=== PATIENT | female | born 1980 | race Caucasian/White ===

== ENCOUNTER 2016-05-16 01:05 | Emergency (ER) | payer OTHER ==
[~2016-05-16] VITALS: Ht 162.6 cm; Wt 84.3 kg
[~2016-05-16 01:05] MED LIST: P EP PO; PREN-92 PO
[2016-05-16 01:10] VITALS: TEMP 98.8; Ht 162.6 cm; Wt 84.3 kg
--- OUTSIDE RECORDS SUMMARY | 2016-05-16 01:10 | XMS REPORT | Continuity of Care Document ---
Author Author [facility] Organization [facility] Address Unknown Phone Unavailable Allergies Medications Problems Procedures Results Encounters ACCT No. Visit Date/Time Discharge Status Pt. Type Provider Facility Loc./Unit Complaint [id number] 03/29/2013 20:33:00 03/29/2013 23 :59:59 CLS Outpatient
--- OUTSIDE RECORDS SUMMARY | 2016-05-16 01:10 | XMS REPORT | Continuity of Care Document ---
Author Author Ann Shelley RN [facility] Address [address] [place] [id number] Phone Unavailable Care Team Providers Care Apple Turner Name Role Phone Rahel De Los Santos PP Unavailable Payers Payer name Insurance type Covered democrat ID Authorization(s) Unknown Problems Condition Effective Dates (start - stop) Clinical Status Pharyngitis, Acute - *Acute Family History Family Member Diagnosis Age At Onset Status Unknown Social History Social History Element Description Quantity Unknown Allergies, Adverse Reactions, Alerts Substance Reaction Severity Status PENICILLIN V POTASSIUM HIVES Unknown Medications Medication Instructions Dosage Effective Dates (start - stop) Status Multivitamins 28 mg iron-800 mcg tablet Take 1 tablet daily - Active Immunizations Vaccine Date Status Comments Unknown Results Test Name Date and Time Measure Units Reference Range Abnormal Flag Comments Panel Description: Rapid Strep-throat Rapid Strep-throat 20:58:00 Negative Negative Vital Signs Date / Time: Height Weight Pulse Rate Blood Pressure Temperature /20:49:00 85 /min 128/90 mm[Hg] 99.2 F Procedures Procedure Date Unknown Encounters Encounter Location Date Patient Visit [facility] Patient Visit Conversion Advance Directives Directive Effective Date Unknown
--- OUTSIDE RECORDS SUMMARY | 2016-05-16 01:10 | XMS REPORT | Referral Summary ---
Author Organization Unknown Address Unknown Phone Unavailable Care Team Providers Care Plastics Plater Name Role Phone No PCP, Pt States Primary Care Physician [phone] Encounter VC Date(s): 03/09/14 - 03/09/14 [facility] Barriga, Mik [address] [place] [id number] Discharge Diagnosis: Sinusitis Discharge Disposition: Home or Self Care Attending Physician: Nicol Tenorio APRN Admitting Physician: Nicol Tenorio APRN Referring Physician: No PCP, Pt States Vital Signs Most recent to 1 oldest [Reference Range]: Temperature Tympanic 37.9 degC [36.6-38.1 degC] (03/09/14 6:21 PM) Apical Heart Rate 100 bpm [60-100 bpm] (03/09/14 6:21 PM) Most recent to 1 oldest [Reference Range]: SpO2 100 % (03/09/14 6:21 PM) Problem List Condition Effective Dates Status Health Status Informant Obesity(Confirmed) Active patient Allergies, Adverse Reactions, Alerts Substance Reaction Severity Status penicillin V potassium HIVES Active Medications Prenate tabs, Chewed, Daily, 0 Refill(s) Start Date: 03/09/14 Status: Ordered Zithromax Z-Yoseph 250 mg oral tablet See Instructions, as directed on package labeling, # 6 tabs, 0 Refill(s), Pharmacy: [id number], as directed on package labeling Special Instructions: as directed on package labeling Start Date: 03/09/14 Stop Date: 03/13/14 Status: Ordered Results No data available for this section Immunizations No data available for this section Procedures No data available for this section Social History Social History Type Response Smoking Status Never smoker Assessment and Plan Extracted from: Title: Ambulatory Patient Education Author: Nicol Tenorio APRN Date: Allergy Sinusitis Sinusitis is redness, soreness, and swelling (inflammation ) of the paranasal sinuses. Paranasal sinuses are air pockets within the bones of your face ( beneath the eyes, the middle of the forehead, or above the eyes). In healthy paranasal sinuses, mucus is able to drain out, and air is able to circulate through them by way of your nose. However, when your paranasal sinuses are inflamed, mucus and air can become trapped. This can allow bacteria and other germs to grow and cause infection. Sinusitis can develop quickly and last only a short time (acute ) or continue over a long period (chronic ). Sinusitis that lasts for more than 12 weeks is considered chronic. CAUSES Causes of sinusitis include: Allergies. Structural abnormalities, such as displacement of the cartilage that separates your nostrils (deviated septum ), which can decrease the air flow through your nose and sinuses and affect sinus drainage. Functional abnormalities, such as when the small hairs (cilia ) that line your sinuses and help remove mucus do not work properly or are not present. SYMPTOMS Symptoms of acute and chronic sinusitis are the same. The primary symptoms are pain and pressure around the affected sinuses. Other symptoms include: Upper toothache. Earache. Headache. Bad breath. Decreased sense of smell and taste. A cough, which worsens when you are lying flat. Fatigue. Fever. Thick drainage from your nose, which often is green and may contain pus ( purulent ). Swelling and warmth over the affected sinuses. DIAGNOSIS Your caregiver will perform a physical exam. During the exam, your caregiver may : Look in your nose for signs of abnormal growths in your nostrils (nasal polyps) . Tap over the affected sinus to check for signs of infection. View the inside of your sinuses (endoscopy ) with a special imaging device with a light attached (endoscope ), which is inserted into your sinuses. If your caregiver suspects that you have chronic sinusitis, one or more of the following tests may be recommended: Allergy tests. Nasal cultureA sample of mucus is taken from your nose and sent to a lab and screened for bacteria. Nasal cytologyA sample of mucus is taken from your nose and examined by your caregiver to determine if your sinusitis is related to an allergy. TREATMENT Most cases of acute sinusitis are related to a viral infection and will resolve on their own within 10 days. Sometimes medicines are prescribed to help relieve symptoms (pain medicine, decongestants, nasal steroid sprays, or saline sprays) . However, for sinusitis related to a bacterial infection, your caregiver will prescribe antibiotic medicines. These are medicines that will help kill the bacteria causing the infection. Rarely, sinusitis is caused by a fungal infection. In theses cases, your caregiver will prescribe antifungal medicine. For some cases of chronic sinusitis, surgery is needed. Generally, these are cases in which sinusitis recurs more than 3 times per year, despite other treatments. HOME CARE INSTRUCTIONS Drink plenty of water. Water helps thin the mucus so your sinuses can drain more easily. Use a humidifier. Inhale steam 3 to 4 times a day (for example, sit in the bathroom with the shower running). Apply a warm, moist washcloth to your face 3 to 4 times a day, or as directed by your caregiver. Use saline nasal sprays to help moisten and clean your sinuses. Take [id number]-[id number] or prescription medicines for pain, discomfort, or fever only as directed by your caregiver. SEEK IMMEDIATE MEDICAL CARE IF: You have increasing pain or severe headaches. You have nausea, vomiting, or drowsiness. You have swelling around your face. You have vision problems. You have a stiff neck. You have difficulty breathing. MAKE SURE YOU: Understand these instructions. Will watch your condition. Will get help right away if you are not doing well or get worse. Document Released: 01/25/2006 Document Revised: 04/18/2012 Document Reviewed: [facility] Patient Information 2014 [facility]. [facility] Medicine Upper Respiratory Infection, Adult An upper respiratory infection (URI) is also sometimes known as the common cold. The upper respiratory tract includes the nose, sinuses, throat, trachea, and bronchi. Bronchi are the airways leading to the lungs. Most people improve within 1 week, but symptoms can last up to 2 weeks. A residual cough may last even longer. CAUSES Many different viruses can infect the tissues lining the upper respiratory tract. The tissues become irritated and inflamed and often become very moist. Mucus production is also common. A cold is contagious. You can easily spread the virus to others by oral contact. This includes kissing, sharing a glass, coughing, or sneezing. Touching your mouth or nose and then touching a surface, which is then touched by another person, can also spread the virus. SYMPTOMS Symptoms typically develop 1 to 3 days after you come in contact with a cold virus. Symptoms vary from person to person. They may include: Runny nose. Sneezing. Nasal congestion. Sinus irritation. Sore throat. Loss of voice (laryngitis ). Cough. Fatigue. Muscle aches. Loss of appetite. Headache. Low-grade fever. DIAGNOSIS You might diagnose your own cold based on familiar symptoms, since most people get a cold 2 to 3 times a year. Your caregiver can confirm this based on your exam. Most importantly, your caregiver can check that your symptoms are not due to another disease such as strep throat, sinusitis, pneumonia, asthma, or epiglottitis. Blood tests, throat tests, and X-rays are not necessary to diagnose a common cold, but they may sometimes be helpful in excluding other more serious diseases. Your caregiver will decide if any further tests are required. RISKS AND COMPLICATIONS You may be at risk for a more severe case of the common cold if you smoke cigarettes, have chronic heart disease (such as heart failure) or lung disease ( such as asthma), or if you have a weakened immune system. The very young and very old are also at risk for more serious infections. Bacterial sinusitis, middle ear infections, and bacterial pneumonia can complicate the common cold. The common cold can worsen asthma and chronic obstructive pulmonary disease ( COPD). Sometimes, these complications can require emergency medical care and may be life-threatening. PREVENTION The best way to protect against getting a cold is to practice good hygiene. Avoid oral or hand contact with people with cold symptoms. Wash your hands often if contact occurs. There is no clear evidence that vitamin C, vitamin E, echinacea, or exercise reduces the chance of developing a cold. However, it is always recommended to get plenty of rest and practice good nutrition. TREATMENT Treatment is directed at relieving symptoms. There is no cure. Antibiotics are not effective, because the infection is caused by a virus, not by bacteria. Treatment may include: Increased fluid intake. Sports drinks offer valuable electrolytes, sugars, and fluids. Breathing heated mist or steam (vaporizer or shower). Eating chicken soup or other clear broths, and maintaining good nutrition. Getting plenty of rest. Using gargles or lozenges for comfort. Controlling fevers with ibuprofen or acetaminophen as directed by your caregiver. Increasing usage of your inhaler if you have asthma. Zinc gel and zinc lozenges, taken in the first 24 hours of the common cold, can shorten the duration and lessen the severity of symptoms. Pain medicines may help with fever, muscle aches, and throat pain. A variety of non-prescription medicines are available to treat congestion and runny nose. Your caregiver can make recommendations and may suggest nasal or lung inhalers for other symptoms. HOME CARE INSTRUCTIONS Only take gplx-mqr-zcmqxlo or prescription medicines for pain, discomfort, or fever as directed by your caregiver. Use a warm mist humidifier or inhale steam from a shower to increase air moisture. This may keep secretions moist and make it easier to breathe. Drink enough water and fluids to keep your urine clear or pale yellow. Rest as needed. Return to work when your temperature has returned to normal or as your caregiver advises. You may need to stay home longer to avoid infecting others. You can also use a face mask and careful hand washing to prevent spread of the virus. SEEK MEDICAL CARE IF: After the first few days, you feel you are getting worse rather than better. You need your caregiver's advice about medicines to control symptoms. You develop chills, worsening shortness of breath, or brown or red sputum. These may be signs of pneumonia. You develop yellow or brown nasal discharge or pain in the face, especially when you bend forward. These may be signs of sinusitis. You develop a fever, swollen neck glands, pain with swallowing, or white areas in the back of your throat. These may be signs of strep throat. SEEK IMMEDIATE MEDICAL CARE IF: You have a fever. You develop severe or persistent headache, ear pain, sinus pain, or chest pain. You develop wheezing, a prolonged cough, cough up blood, or have a change in your usual mucus (if you have chronic lung disease). You develop sore muscles or a stiff neck. Document Released: 07/21/2001 Document Revised: 04/18/2012 Document Reviewed: [employer] Patient Information 2014 [employer]. No follow up information was provided. Extracted from: Title: Office Visit Note Author: Nicol Tenorio APRN Date: 03/09/14 Assessment/Plan Sinusitis Rx to be taken as prescribed. Saline nasal washes am and pm. Saline Nasal spray or gel as needed. Increase oral fluids and environmental humidity. 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 Advised to use Mucinex BID. PCP/IC/ER if symptoms not improving or worsen. Ordered: Office Visit Level 3 New [id number] Orders: azithromycin, See Instructions, as directed on package labeling, # 6 tabs, 0 Refill(s), Pharmacy: [id number], as directed on package labeling
--- OUTSIDE RECORDS SUMMARY | 2016-05-16 01:28 | XMS REPORT | Continuity of Care Document ---
Author Author [facility] Organization [facility] Address Unknown Phone Unavailable Allergies Medications Problems Procedures Results Encounters ACCT No. Visit Date/Time Discharge Status Pt. Type Provider Facility Loc./Unit Complaint [id number] 03/29/2013 20:33:00 03/29/2013 23 :59:59 CLS Outpatient
[2016-05-16] MEDS ORDERED: G.I. COCKTAIL 30ml PO ONE (01:30)
[2016-05-16] MEDS ORDERED: FAMOTIDINE 20 MG in NORMAL SALINE 50 ML IV ONE (01:30)
--- NOTE | 2016-05-16 01:48 | ERPDOC ---
Departure Disposition Decision Date: May 16, 2016 Disposition Decision Time: 03:09 Disposition: 01 DISCHARGED HOME, SELF-CARE Impression Impression Impression: Primary Impression: Esophageal reflux Esophagitis presence: esophagitis presence not specified Qualified Codes: K21.9 - Gastro-esophageal reflux disease without esophagitis Additional Impression: Weeks of gestation: unspecified Qualified Codes: Z33.1 - state, incidental Severity: Moderate Condition: Improved Seen By: Physician only Referrals: CHRISTIE WALKER (Family) 3 Days Patient Instructions: Gastroesophageal Reflux Disease (ED) Problems/Meds/Labs Reviewed?: Yes Medications reviewed and manag: Yes Additional Instructions: You have heart burn. Because of your status, your treatment options are changed. Use zantac and/or tums as needed for periodic heartburn. Follow up with your physician this week for routine OB care and for continued treatment of your heartburn. Follow up care ordered?: Yes Mental Status: Alert, Oriented HPI - Chest Pain General Chief Complaint: Chest Pain Stated Complaint: CHEST PAINS Time Seen by Provider: 01:20 Source: patient, family Exam Limitations: no limitations HPI - Chest Pain Initial Comments 35yo woman presents tonight with epigastric pain. Pt ate earlier this evening, then went for a jog. When she returned, around 1999, she had abrupt onset of sharp, burning, epigastric pain. Pt has never had sx like this before. Sx worsened while lying down; she got up to get pepto-bismol. While walking to the bathroom, pain became severe and she passed out. Pt soiled herself while passed out. When she came to, pt called her to help her. Pt now presented to ER for evaluation. Sx markedly better since pt passed out. Occurred At: home Onset/Timing: Rapid Duration: 4-6 hrs Pain/Severity Scale: Now: 3/10, Worst: 10/10 Activities at Onset/Context: activity Location: epigastric Quality: burning, sharp Modifying Factors: IMPROVES WITH: rest, WORSE WITH: lying down Associated Symptoms: diaphoresis, fever/chills, heartburn, nausea/vomiting Chest Pain Radiation: no radiation Nitro Today/Relief: no nitro taken today Aspirin Treatment Today: contraindicated Prior Chest Pain/Cardiac Artemio: no prior chest pain Hx of Similar Symptoms: No Allergies: Coded Allergies: Penicillins (Verified Allergy, Intermediate, HIVES, 05/16/16) Past History Past Medical History Pt denies signifigant PMH Vaccines Hx Influenza Vaccination: Yes Hx Pneumococcal Vaccination: No Hx Tetanus, Diptheria, Pertuss: Yes Social History Smoking Status: Never smoker Substance Use Type: does not use Review of Systems Cardiovascular Rhythm/Rate: tachycardia Pulmonary Respiratory: tachypnea GI Upper Abdomen: heartburn/indigestion, nausea, pain, DENIES: dysphagia, food intolerances, hematemesis, vomiting Lower Abdomen: DENIES: blood in stool, zay-colored stools, constipation, diarrhea, melena, pain, painful BM All other Systems All Other Systems: Reviewed and Negative Physical Exam General General Nourishment: well nourished, well developed, appears stated age, no acute distress, adult, obese General Body Habitus: well groomed Vitals and Pain First Documented Vital Signs Date Time Temp Pulse Resp B/P Pulse Ox O2 Delivery O2 Flow Rate FiO2 05/16/16 01:10 98.8 112 20 114/68 95 Room Air Weight: Kilograms: 84.300 Height (feet): 5 Height (inches): 4.00 Triage Pain Scale: RN VS reviewed by Provider: Yes Eyes (brief) Eyes Brief: found: EOMI, PERRL, not found: scleral icterus ENMT (brief) ENMT Brief: FOUND: TM clear, TM good light reflex, ear canals clear, mucosa moist, normal tonsils Neck (brief) Neck: FOUND: trachea midline, NOT FOUND: JVD, adenopathy, thyromegaly Respiratory (brief) Respiratory: FOUND: clear all herrera, equal bilaterally, symmetrical, NOT FOUND : rales, wheezes Cardiovascular (brief) Cardiac: FOUND: regular rate, regular rhythm, NOT FOUND: click, gallop, murmur , pedal edema, peripheral edema, rub Capillary Refill: <2 sec Pulses: all distal extremities, equal, strong Abdomen (brief) Abdominal Brief: FOUND: bowel normo active x4, soft, tender (In epigastrum; Neg cormier's), NOT FOUND: distended, hepatosplenomegaly, pulsatile mass Lymphatic (brief) Lymphatic Brief: NOT FOUND: adenopathy, lymphedema Musculoskeletal (brief) Musculoskeletal Brief: NOT FOUND: deformity, loss of motion, spasm, tenderness Integumentary (brief) Integumentary Brief: FOUND: pink, warm Neurologic (brief) Neurological Brief: FOUND: CN w/o gross def to obs, gait w/o gross def to obs, motor-no gross deficits, sensory-no gross deficits, NOT FOUND: Babinski Psychiatric (brief) Psychiatric Brief: FOUND: alert, normal affect, oriented Differential Diagnoses Considering: Acute MD, Anxiety/Panic, Biliary Colic, Costochondritis, Esophageal Spasm, GERD, Hyperventilation, Pneumothorax, Pneumonia, PSVT, Pulmonary Edema, Muscle Spasm Progress Results/Orders Orders Procedure Category Date Status Time Cbc W/Auto LAB 05/16/16 Complete Diff-Reflex Manual 01:27 Bmp - Basic Metabolic LAB 05/16/16 Complete Panel 01:27 Probnp LAB 05/16/16 Complete 01:27 Troponin I W LAB 05/16/16 Complete Hemolysis Index 01:27 INR LAB 05/16/16 Complete 01:27 EKG EKG 05/16/16 Logged 01:27 Chest 1 View RAD 05/16/16 Logged 01:27 Iv Lock (Ed Only) EDM 05/16/16 Transmitted 01:27 LAB 05/16/16 Complete Qualitative, Serum 01:27 Famotidine (Pepcid 20 PHA 05/16/16 Complete Mg Inj.) 01:30 G.I. Cocktail PHA 05/16/16 Complete (/Maalox/Lidocaine 01:30 Normal Saline (Normal PHA 05/16/16 Complete Saline Iv) 02:00 Acetaminophen PHA 05/16/16 Complete (Tylenol Extra 02:30 Lab Results Laboratory Tests Test 05/16/16 01:40 White Blood Count 14.7T/MM3 Red Blood Count 4.27M/MM3 Hemoglobin 12.9GM/DL Hematocrit 36.9% Mean Corpuscular Volume 86.4UM3 Mean Corpuscular Hemoglobin 30.2UUG Mean Corpuscular Hemoglobin Concent 35.0GM/DL RDW Standard Deviation 37.3FL Platelet Count 247T/MM3 Mean Platelet Volume 9.7UM3 Immature Granulocyte % (Auto) 0.3% Neutrophils (%) (Auto) 82.4% Lymphocytes (%) (Auto) 9.0% Monocytes (%) (Auto) 7.4% Eosinophils (%) (Auto) 0.6% Basophils (%) (Auto) 0.3% Absolute Immature Granulocyte (auto 0.04T/MM3 Absolute Neutrophils (auto) 12.2T/MM3 Absolute Lymphocytes (auto) 1.3T/MM3 Absolute Monocytes (auto) 1.1T/MM3 Absolute Eosinophils (auto) 0.1T/MM3 Absolute Basophils (auto) 0.0T/MM3 Prothromb Time International Ratio 1.16 Turbidity < 20 Sodium Level 139MEQ/L Potassium Level 3.7MEQ/L Chloride Level 102MEQ/L Carbon Dioxide Level 24MEQ/L Anion Gap 13MEQ/L Blood Urea Nitrogen 18.0MG/DL Creatinine 1.1MG/DL Glomerular Filtration Rate Calc 57 BUN/Creatinine Ratio 16RATIO Glucose Level 97MG/DL Calculated Osmolality 270MOSM/KG Calcium Level 9.1MG/DL Icterus Index < 2 Troponin I < 0.012ng/ml [id number]-[id number]-Type Natriuretic Peptide 38PG/ML Human Chorionic Gonadotropin, Qual Positive Chemistry Specimen Hemolysis < 15 Medications Current ED Medications Famotidine/Sodium Chloride (PEPCID 20 mg INJ./NS) 52 ml @ 100 mls/hr O ONCE IV Last administered on 05/16/16 01:51; Start 05/16/16 at 01:30; Stop 05/16/16 at 02:01; Status DC Pharmacy Profile Note 30 ml 30 ml O ONCE PO Last administered on 05/16/16 01: 37; Start 05/16/16 at 01:30; Stop 05/16/16 at 01:31; Status DC Sodium Chloride (Normal Saline IV) 1,000 ml @ 0 mls/hr Q0M ONCE IV Last administered on 05/16/16 02:20; Start 05/16/16 at 02:00; Stop 05/16/16 at 02:01; Status DC Acetaminophen (Tylenol Extra Strength) 1,000 mg O ONCE PO Last administered on 05/16/16 02:38; Start 05/16/16 at 02:30; Stop 05/16/16 at 02:31; Status DC Progress Progress 35yo woman with s/s c/w esophageal reflux. Sx improved with H2 sean, GI cocktail, and fluids. No evidence of MD, PTX, PNA, or other concerning dx. Discussed all this with pt, who voices understanding. F/u with PCM as outpt. RAJ UNDERWOOD DO May 16, 2016 01:48
[2016-05-16 01:49] LABS: BASOPHILS % (AUTO) 0.3 % (0-2); EOSINOPHILS # (AUTO) 0.1 T/MM3 (0-0.5); EOSINOPHILS % (AUTO) 0.6 % (0-4); HCT - HEMATOCRIT 36.9 % (36-46); HGB - HEMOGLOBIN 12.9 GM/DL (12-16); IMMATURE GRANULOCYTE # (AUTO) 0.04 T/MM3 (0.00-0.03); IMMATURE GRANULOCYTE % (AUTO) 0.3 % (0.0-0.5); LYMPHOCYTES # (AUTO) 1.3 T/MM3 (1-4.8); MEAN CORPUSCULAR HGB 30.2 UUG (26-34); MEAN CORPUSCULAR VOLUME 86.4 UM3 (80-100); MEAN PLATELET VOLUME 9.7 UM3 (9.4-12.4); MONOCYTES # (AUTO) 1.1 T/MM3 (0-0.8); MONOCYTES % (AUTO) 7.4 % (0-9.0); NEUTROPHILS #(AUTO)-ABSOLUTE 12.2 T/MM3 (1.8-7.7); NEUTROPHILS % (AUTO) 82.4 % (33-66); RED BLOOD COUNT 4.27 M/MM3 (4.00-5.20); WBC - WHITE BLOOD COUNT 14.7 T/MM3 (4.5-11.0)
[2016-05-16 01:50] LABS: INR 1.16 (0.76-1.04); PROTHROMBIN TIME 12.6 SEC (9.31-12.49)
[2016-05-16 01:55] LABS: ANION GAP 13 MEQ/L (5-15); BUN/CREATININE RATIO 16 RATIO (6-26); CALCIUM 9.1 MG/DL (8.4-10.2); CHLORIDE 102 MEQ/L (98-107); CO2 - CARBON DIOXIDE 24 MEQ/L (22-30); CREATININE 1.1 MG/DL (0.7-1.2); GLOMERULAR FILTRATION RATE 57; GLUCOSE 97 MG/DL (65-110); POTASSIUM 3.7 MEQ/L (3.6-5); SODIUM 139 MEQ/L (134-144)
[2016-05-16] MEDS ORDERED: NORMAL SALINE 1,000 ML IV ONE (02:00)
[2016-05-16 02:04] LABS: PROBNP 38 PG/ML (0-175)
--- NOTE | 2016-05-16 02:10 | NUR ---
STATUS PT IS INFORMED THAT HER TEST WAS POSITIVE, PT IS SOMEWHAT BUT NOT COMPLETEY SHOCKED BUT ANXIETY DOES INCREASE WITH THIS NEWS.
--- NOTE | 2016-05-16 02:20 | NUR ---
STATUS PT REPORTS SHE FEELS THOUGH SHE IS GOING TO PASS OUT AGAIN. PT IS LIGHT HEADED, DIAPHORETIC AND STATES SHE FEELS HOT. PT IS PLACED IN TRENDELENBERG POSITION, PT IS HYPOTENSIVE SBP 95.
[2016-05-16] MEDS ORDERED: ACETAMINOPHEN 500 MG TABLET PO ONE (02:30)
--- NOTE | 2016-05-16 02:35 | NUR ---
IMPROVEMENT PT IS NOW ABLE TO SET UP AND REPORTS HER SYMPTOMS HAVE PASSED AND IS NOW ABLE TO TAKE ORDERED PO TYLENOL.
--- NOTE | 2016-05-16 03:05 | NUR ---
PROVIDER DR UNDERWOOD IN ROOM AT THIS TIME.
[2016-05-16 03:34] VITALS: BP 102/56; PULSE 79; RESP 16; O2SAT 99
--- NOTE | 2016-05-16 03:34 | NUR ---
DEPART PT IS DISCHARGED AT THIS TIME, INSTRUCTIONS ARE REVIEWED WITH PT AND UNDERSTANDING IS VOICED. PT LEAVES AMBULATORY WITH HER .
[2016-05-16] MEDS ORDERED: NO CURRENT HOME MEDS (03:38)
== END 2016-05-16 03:34 | disposition home or self-care (01) ==
LOC: ED 01:05
DX: K21.9 Gastro-esophageal reflux disease without esophagitis (principal); Z33.1 Pregnant state, incidental
CPT/HCPCS: 80048; 83880; 84484; 84703; 85025; 85610; 93005; 96361; 96365; 99284; J7030; J7050; J7999

== ENCOUNTER 2017-01-15 05:40 | Inpatient (IN) ==
[2017-01-15] MEDS ORDERED: NOZIN NASAL SWAB NAS ONE ×2 (05:54)
[2017-01-15] MEDS ORDERED: GENTAMICIN PB 120 MG/100 ML BAG IV ONE (05:54)
[2017-01-15] MEDS ORDERED: CLINDAMYCIN PB 600 MG/50 ML BAG IV ONE (05:54)
--- OUTSIDE RECORDS SUMMARY | 2017-01-15 05:54 | External Medical Summary | Continuity of Care Document ---
:1980 Author Organization [facility] [employer] [facility] Address [address] [place], [place] [id number] Phone Care Team Providers Name Role Phone Rahel De Los Santos DO Unavailable Unavailable Allergies, Adverse Reactions, Alerts Substance Reaction Severity Status Penicillins Unknown Unknown Active Medications Medication Instructions Dosage Effective Dates Status Comments (start - stop) Colace 100 mg take 1 capsule by 100 MG - Active capsule oral route every day at bedtime as needed as needed Rhophylac 1,500 - Active unit (300 mcg)/2 mL injection syringe PrenaPlus 27 mg-1 take 1 tablet by Not Available - Active 1 a day mg Tab ORAL route every day Problems Condition Effective Dates (start - stop) Clinical Status Spotting complicating , - second trimester 16 weeks gestation of - Maternal care for breech presentation, - unsp 36 weeks gestation of - Spotting complicating , - second trimester Maternal care for excess growth, - second tri, unsp Encounter for suprvsn of normal - , second trimester 19 weeks gestation of - Spotting complicating , - second trimester 16 weeks gestation of - Spotting complicating , third - trimester Maternal care for excess growth, - third trimester, unsp 35 weeks gestation of - Maternal care for breech presentation, - unsp Streptococcus B carrier state - complicating 37 weeks gestation of - Maternal care for breech presentation, - unsp Encounter for suprvsn of normal - , third trimester 38 weeks gestation of - Maternal care for excess growth, - second tri, unsp 19 weeks gestation of - Maternal care for excess growth, - second tri, unsp 14 weeks gestation of - Maternal care for excess growth, - third trimester, unsp Encounter for suprvsn of normal - , third trimester 33 weeks gestation of - Pap Smear Screening, Cervix - Encounter for suprvsn of normal - , first trimester 10 weeks gestation of - Encounter for suprvsn of normal - , second trimester 27 weeks gestation of - Type O blood, Rh negative - Encounter for suprvsn of normal - , second trimester 16 weeks gestation of - Encounter for suprvsn of normal - , second trimester 23 weeks gestation of - Encounter for suprvsn of normal - , third trimester 31 weeks gestation of - Encounter for suprvsn of normal - , third trimester 29 weeks gestation of - Encounter for suprvsn of normal - , third trimester 35 weeks gestation of - Procedures Procedure Date Unknown Results Test Name Date and Time Measure Units Reference Range Abnormal Flag Comments Unknown Advance Directives Directive Yes / No Effective Date File Name Unknown Encounters Encounter Practice Location Reason(s) Diagnoses Date Provider Care Team Description For Visit Members Yasmin [place] Maternal care for Shelley Referring In Womens breech 8-201 Vanesa. Provider: Chip SHEA, presentation, 7 700 [facility] Box unspEncounter for Medical Sobbing L, 1522, suprvsn of normal Center [address] [place], , third Dr [facility] [place], [email or web address] weeks 120, Center [id number], gestation of [facility] [place], [address], tel:[phone] [place], , [place], [address]. tel: tel:[phone] Yasmin oHuser Maternal care for Nov-2 Shelley Referring In Womens breech 1-201 Vanesa. Provider: Health SHABBIR, presentation, 7 700 [facility] Box unspStreptococcus Medical Sobbing L, 1522, B carrier state Center [address] [place] [address], complicating , [facility], [email or web address] weeks 120, Center [id number], gestation of [facility] [place], [address], tel:[phone] [place], , [place], [address]. tel: tel:[phone] Yasmin [place] Maternal care for Nov-1 Shelley Referring In Womens breech 5-201 Vanesa. Provider: Chip SHEA, presentation, 7 700 [place] PO Box [email or web address] weeks Medical Sobbing L, 1522, gestation of Center [address] [place] [address], , [facility], 120, Center [id number], [facility], [address], tel:[phone] [place], , [place], [address]. tel: tel:[phone] Yasmin [place] Nov-0 Shelley In Womens 8-201 Vanesa. Health [place], 7 700 [facility] Medical 1522, Center [place], , [facility], 120, [id number], [facility] [place], tel:[phone] , [place]. tel: [phone] Yasmin [place] Encounter for Nov-0 Shelley Referring In Womens suprvsn of normal 6-201 Vanesa. Provider: Chip SHEA, , third 7 700 [place] PO Box weeks Medical Sobbing L, 1522, gestation of Center [address] [place] [address], , [facility], 120, Center [id number], [facility], [address], tel:[phone] [place], , [place], [address]. tel: tel: [phone] Yasmin [place] Spotting Nov-0 Shelley Referring In Womens Ultrasound complicating 6-201 Vanesa. Provider: Chip SHEA, , third 7 700 [place] PO Box trimesterMaternal Medical Sobbing L, 1522, care for excess Center [address] [place], growth, , [facility] [place], third trimester, 120, Center [id number], [id number] weeks [place], [facility] gestation of [place], [address], tel:[phone] [place] , [place], [address]. tel: tel: [phone] Yasmin [place]er Maternal care for Oct-2 Shelley Referring In Womens excess 5-201 Vanesa. Provider: Chip SHEA, growth, third 7 700 Vanesa Shelley PO Box trimester, Medical [place], 700 1522, unspEncounter for [facility], suprvsn of normal , [facility] Dr SHARMA, , third 120, [place] 120, [id number], [email or web address] weeks [place], gestation of [place], [place], tel: [phone]. , [place]. tel: tel: [phone] Yasmin [place] Encounter for Oct-1 Shelley Referring In Womens suprvsn of normal 0-201 Vanesa. Provider: Chip SHEA, , third 7 700 Vanesa Shelley PO Box [email or web address] weeks Medical [place], 700 1522, gestation of [facility], , [facility] Dr SHARMA, 120, [place] 120, , [place], [facility], [place], tel: [phone]. , [place]. tel: tel: [phone] Yasmin [place] Encounter for Sep-2 Shelley Referring In Womens suprvsn of normal 7-201 Vanesa. Provider: Chip SHEA, , third 7 700 [place] PO Box [email or web address] weeks Medical Sobbing L, 1522, gestation of [address], , [facility] [place] SHARMA, 120, Center [id number], [place], [facility], [address], tel:[phone] Mik , [place], [address]. tel: tel: [phone] Yasmin [place] Encounter for Sep-1 Sobbing Referring In Womens suprvsn of normal 2-201 [place]. Provider: Chip SHEA, , second 7 700 [place] PO Box [email or web address] weeks Medical Sobbing L, 1522, gestation of Center [address] [place], [address], [facility] [place], blood, Rh Suite Center [id number], negative 120, Drive [place], [address], tel: [place], [place], [address], [place], [address]. [place]. tel: tel: [phone] Yasmin [place] Encounter for Aug- Shelley Referring In Womens suprvsn of normal 5-201 Vanesa. Provider: Chip SHEA, , second 7 700 [place] PO Box [email or web address] weeks Medical Sobbing L, 1522, gestation of Center [address] [place] [address], Dr [facility] [place], 120, Center [id number], [place], [facility] [place], [address], tel: [phone] [place], , [place], [address]. tel: tel: [phone] Yasmin [place]er Spotting Rick-2 Sobbing Referring In Womens complicating 0-201 [place]. Provider: Chip SHEA, , second 7 700 [facility] Box trimesterMaternal Medical Sobbing L, 1522, care for excess Center [address] [place], growth, Drive, [facility], second tri, Suite Center [id number], unspEncounter for 120, Drive [place] suprvsn of normal [place], [address], tel: , second ZACHARY, [place], [email or web address] weeks [address], [place], [address]. gestation of [place]. tel: tel: [phone] Yasmin [place] Maternal care for Rick-2 Sobbing Referring In Womens Ultrasound excess 0-201 [place]. Provider: Chip SHEA, growth, second 7 700 [place] PO Box tri, [email or web address] weeks Medical Sobbing L, 1522, gestation of Center [address] [place], Drive, [facility] [place], Suite Center [id number], 120, Drive [place], [address], tel:2 [place] SHARMA, 114, [place], [address]. [place]. tel: tel: [phone] Yasmin [place]er Encounter for Acosta-2 Shelley Referring In Womens suprvsn of normal 9-201 Vanesa. Provider: Chip SHEA, , second 7 700 [place] PO Box [email or web address] weeks Medical Sobbing L, 1522, gestation of Center [address] [place] [address], , [facility], 120, Center [id number], [place], [facility], [address], tel: [place], , [place], [address]. tel: tel: [phone] Yasmin [place] Spotting Acosta-2 Sobbing Referring In Womens Ultrasound complicating 9 [place]. Provider: Chip SHEA, , second 7 700 [place] PO Box [email or web address] weeks Medical Sobbing L, 1522, gestation of [address], [facility], Suite Center , 120, Drive [place], [address], tel: [place] SHARMA, 114, [place], [address]. [place]. tel: tel: [phone] Yasmin [place]er Spotting Acosta-2 Sobbing Referring In Womens complicating 6- [place]. Provider: Chip SHEA, , second 7 700 [place] PO Box [email or web address] weeks Medical Sobbing L, 1522, gestation of Center [address] [place] [address], [facility], Suite Center [id number], 120, Drive [place], [address], tel: [place], [address], [place], [address]. [place]. tel: tel: [phone] Yasmin Houser Maternal care for Acosta-1 Shelley In Womens excess 4-201 Vanesa. Health SHABBIR, growth, second 7 700 PO Box tri, [email or web address] weeks Medical 1522, gestation of [facility], [place], 120, [id number], [place], [place], tel:[phone] , [place]. tel: [phone] Yasmin H[place]er Pap Smear May-1 Shelley In Womens Screening, 7-201 Vanesa. Health SHABBIR, CervixEncounter 7 700 PO Box for suprvsn of Medical 1522, normal , Center [place], first [email or web address] , Hiren SHARMA, weeks gestation 120, , of [place], [place], tel:[phone] , [place]. tel: [phone] Associates [place] Sep-2 Shelley Referring In Womens 5-200 Vanesa. Provider: Chip SHEA, 9 700 [place] PO Box Medical Fil[place]erto, 1522, Center [address] [place], [address] [place], 120, Hi[place] 100, [id number], [place], [address]. tel:[phone] tel:+ , [place]. [id number] tel: [phone] Associates [place] Sep-0 Nuris In Womens 4-200 Mary. Chip SHEA, 9 700 PO Box Medical 1522, [place] [address] Sumeet, [place], 120, [id number], [place], [place], tel:[phone] , [place]. tel: [phone] Family History Family Member Diagnosis Age At Onset No family history of Ovarian Cancer No family history of Breast Cancer No family history of Stroke Maternal Grandmother Cardiovascular Disease No family history of Kidney Problems No family history of Diabetes No family history of Lung Disease Paternal Grandmother Cancer, colon Father Hypertension No family history of Thyroid Disorder No family history of Epilepsy Paternal Grandfather Cancer, colon No family history of Osteoporosis Immunizations Vaccine Date Status Comments Tdap completed Source: New Immunization Record Influenza, injectable, completed Source: New Immunization Record quadrivalent, preservative free, 3 yrs or older Rhophylac completed Source: New Immunization Record Rhophylac completed Source: New Immunization Record Payers Payer name Insurance type Covered green party ID Authorization(s) A[employer]na CI [id number] Aetna CI [id number] Aetna CI [id number] Aetna CI [id number] Aetna CI [id number] Social History Type Description Quantity Date Captured Unknown Vital Signs Date / Height Weight BMI Pulse Blood Temperature Respiratory Body Head BMI Time: Rate Pressure Rate Surface Circumference percentile Area Unknown Chief Complaint And Reason For Visit Unknown Chief Complaint And Reason For Visit Reason For Referral Reason For Referral Unknown Plan Of Care Date Type Action Status Appointment Luis Angel Emma BOOKED Appointment Luis Angel Emma - Primary C/S BOOKED Appointment Luis Angel, Emma BOOKED Future Order: Radiology Order Ultrasound, OB Limited ([id number]) Ordered Future Order: Radiology Order Ultrasound OB Follow-up ([id number]) Ordered Future Order: Radiology Order Complete OB Ultrasound > 14 Ordered Weeks ([id number]) Date Type Problem Goal Intervention Status Start Date Unknown. History Of Present Illness Encounter Date Complaint History Of Present Illness This patient has no known history of present illness Functional Status Encounter Date Functional Assessment Cognitive Assessment Unknown Medications Administered Medication Instructions Dosage Effective Dates (start - stop) Status Comments Drug Treatment Unknown Instructions Date Instruction Additional Information environmental / work hazards travel use of any medications (including supplements, vitamins, herbs, OTC drugs) domestic violence seat belt use childbirth classes / hospital facilities hospital registration genetic testing Zika virus assessment & precautions HIV and other routine tests risk factors identified by history anticipated course of care nutrition and weight gain counseling, special diet toxoplasmosis precautions (cats / raw meat) sexual activity exercise indications for ultrasound influenza vaccine
--- OUTSIDE RECORDS SUMMARY | 2017-01-15 05:54 | External Medical Summary | Continuity of Care Document ---
:1980 Author Organization [facility] [employer] [facility] Address [address] [place], [place] [id number] Phone Care Team Providers Name Role Phone Rahel De Los Santos DO Unavailable Unavailable Allergies, Adverse Reactions, Alerts Substance Reaction Severity Status Penicillins Unknown Unknown Active Medications Medication Instructions Dosage Effective Dates Status Comments (start - stop) Rhophylac 1,500 - Active unit (300 mcg)/2 [...] second trimester 19 weeks gestation of - Maternal care for excess growth, - second tri, unsp 19 weeks gestation of - 10 weeks gestation of - Pap Smear Screening, Cervix - Encounter for suprvsn of normal - , first trimester 14 weeks gestation of - Maternal care for excess growth, - second tri, unsp Encounter for suprvsn of normal - , second trimester 16 weeks gestation of - Procedures Procedure Date Ultrasnd exam, preg uterus, limited Results Test Name Date and Time Measure Units Reference Range Abnormal Flag Comments Unknown Advance Directives Directive Yes / No Effective Date File Name Unknown Encounters Encounter Practice Location Reason(s) Diagnoses Date Provider Care Team Description For Visit Members Yasmin Alegre Rick-2 Sobbing Referring In Womens complicating 0-201 [place]. Provider: Chip SHEA, , second 7 700 [place] PO Box trimesterMaternal Medical Sobbing L, 1522, care for excess Center [address] [place], growth, Drive, [facility], second tri, Suite Center [id number], unspEncounter for 120, Drive [place] suprvsn of normal [place], [address], tel:[phone] , second ZACHARY, [place], [email or web address] weeks [address], [place], [address]. gestation of [place]. tel: tel: [phone] Yasmin [place] Maternal care for Rick-2 Sobbing Referring In Womens Ultrasound excess 0-201 [place]. Provider: Chip SHEA, growth, second 7 700 [place] PO Box tri, [email or web address] weeks Medical Sobbing L, 1522, gestation of Center [address] [place], Drive, Medical [place], Suite Center [id number], 120, Drive [place], [address], tel: [place], [place], [address], [place], [address]. [place]. tel: tel: [phone] Yasmin [place] Encounter for Acosta-2 Shelley Referring In Womens suprvsn of normal 9-201 Vanesa. Provider: Chip SHEA, , second 7 700 [place] PO Box [email or web address] weeks Medical Sobbing L, 1522, gestation of Center [address] [place], Dr, [facility] Medical [place], 120, Center [id number], [place], [facility], [address], tel:[phone] [place], , [place], [address]. tel: tel: [phone] Yasmin [place] Spotnewton Acosta-2 Sobbing Referring In Womens Ultrasound complicating 9-201 [place]. Provider: Chip SHEA, , second 7 700 [place] PO Box [email or web address] weeks Medical Sobbing L, 1522, gestation of Center [address] [place], Drive, Medical [place], Suite Center [id number], 120, Drive [place], [address], tel: [place], [place], [address], [place], [address]. [place]. tel: tel: [phone] Associates [place] Spotting Acosta-2 Sobbing Referring In Womens complicating 6-201 [place]. Provider: Chip SHEA, , second 7 700 [place] PO Box [email or web address] weeks Medical Sobbing L, 1522, gestation of Center [address] [place], Drive, Medical [place], Suite Center [id number], 120, Drive [place], [address], tel: [place], [place], [address], [place], [address]. [place]. tel: tel: [phone] Yasmin [place] 14 weeks Acosta-1 Shelley In Womens gestation of 4-201 Vanesa. Health SHABBIR, pregnancyMaternal 7 700 PO Box care for excess Medical 1522, growth, [facility], second tri, unsp , [facility], 120, [id number], [place], [place], tel:[phone] , [place]. tel: [phone] Yasmin [place] 10 weeks June-1 Shelley In Womens gestation of 7-201 Vanesa. Health SHABBIR, pregnancyPap 7 700 PO Box Smear Screening, Medical 1522, CervixEncounter [facility], for suprvsn of [place], normal , 120, , [facility], tel:[phone] , [place]. tel: [phone] Yasmin [place] Sep-2 Shelley Referring In Womens 5-200 Vanesa. Provider: Chip SHEA, 9 700 [place] PO Box Medical Fil[place]erto, 1522, Center [address] [place], 120, [place] 100, [id number], [place], [place], [address]. tel:[phone] tel:[phone] , [place]. [address] tel: [phone] Yasmin [place] Aug-0 Nuris In Womens 4-200 Mary. Health SHABBIR, [address] [facility] 15[address], [address] [place]ume[place], [facility], 120, [id number], [place], [place], tel:[phone] [address] , [place]. tel:[phone] Family History Family Member Diagnosis Age At [...] of Osteoporosis Immunizations Vaccine Date Status Comments Rhophylac completed Source: New Immunization Record Payers Payer name Insurance type Covered alliance party ID Authorization(s) Aetna CI [id number] Aetna CI [id number] Social History Type Description Quantity Date Captured Unknown Vital Signs Date / Height Weight BMI Pulse Blood Temperature Respiratory Body Head BMI Time: Rate Pressure Rate Surface Circumference percentile Area Unknown Chief Complaint And Reason For Visit Unknown Chief Complaint And Reason For Visit Reason For Referral Reason For Referral Unknown Plan Of Care Date Type Action Status Appointment Emma Plasencia BOOKED Future Order: Radiology Order Ultrasound, OB Limited ([id number]) Ordered Future Order: Radiology Order Complete OB Ultrasound > 14 Ordered Weeks ([id number]) Date Type Problem Goal Intervention Status Start [...]
--- OUTSIDE RECORDS SUMMARY | 2017-01-15 05:54 | External Medical Summary | Continuity of Care Document ---
:1980 Author Organization [facility] Address [address] [place], [place] [id number] Phone Care Team Providers Name Role Phone [...] Effective Dates (start - stop) Clinical Status Maternal care for breech presentation, - unsp [...] weeks gestation of - Procedures Procedure Date OB Visit No Charge Results Test Name Date and Time Measure Units Reference Range Abnormal Flag Comments Unknown Advance Directives Directive Yes / No Effective Date File Name Unknown Encounters Encounter Practice Location Reason(s) Diagnoses Date Provider Care Team Description For Visit Members Yasmin Houser Maternal care for Shelley Referring In Womens breech 8-201 Vanesa. Provider: Health PA, presentation, 7 700 [facility] Box unspEncounter for Medical Sobbing L, 1522, suprvsn of normal Center 700 [place], , third Dr, [email or web address] Medical [place], [email or web address] weeks 120, Center [id number], gestation of [place], [facility] [place], [address], tel:[phone] [place], , [place], [address]. tel: tel:[phone] Yasmin Houser Maternal care for Nov-2 Shelley Referring In Womens breech 1-201 Vanesa. Provider: Chip SHEA, presentation, 7 700 [facility] Box unspStreptococcus Medical Sobbing L, 1522, B carrier state Center [address] [place] [address], complicating Hiren Meade [place], weeks 120, Center [id number], gestation of [place], [facility] [place], [address], tel:[phone] [place], , [place], [address]. tel: tel:[phone] Yasmin [place]ouser Maternal care for Nov-1 Shelley Referring In Womens breech 5-201 Vanesa. Provider: Chip SHEA, presentation, 7 700 [place] PO Box [email or web address] weeks Medical Sobbing L, 1522, gestation of Center [address] [place] [address], Dr [facility], 120, Center [id number], [place], [facility] [place], [address], tel:[phone] [place], , [place], [address]. tel: tel:[phone] Yasmin [place]er Encounter for Nov-0 Shelley Referring In Womens suprvsn of normal 6-201 Vanesa. Provider: Chip SHEA, , third 7 700 [facility] Box [email or web address] weeks Medical Sobbing L, 1522, gestation of Center [address] [place], [place] [address]ta, Dr [facility], 120, Center [id number], [place], [facility] [place], [address], tel:[phone] [place], , [place], [address]. tel: tel:[phone] Yasmin [place]er Spotting Nov-0 Shelley Referring In Womens Ultrasound complicating 6-201 Vanesa. Provider: Chip SHEA, , third 7 700 [facility] Box trimesterMaternal Medical Sobbing L, 1522, care for excess Center [address] [place] [address], growth, Dr [facility], third trimester, 120, Center [id number], unsp35 weeks [place], [facility] gestation of [place], [address], tel:[phone] [place], , [place], [address]. tel: tel: [phone] Yasmin [place]er Maternal care for Oct-2 Shelley Referring In Womens excess 5-201 Vanesa. Provider: Chip SHEA, growth, third 7 700 Vanesa Shelley PO Box trimester, Medical [place], 700 1522, unspEncounter for [facility], suprvsn of normal , [facility] Dr SHARMA, , third 120, Hiren 120, [id number], [email or web address] weeks [place], gestation of [place], [place], tel:[phone]. , [place]. tel: tel: [phone] Yasmin Houser Encounter for Oct-1 Shelley Referring In Womens suprvsn of normal 0-201 Vanesa. Provider: Chip SHEA, , third 7 700 Vanesa [place] PO Box [email or web address] weeks Medical [place], 700 1522, gestation of Center [facility] [place], , [facility] Dr SHARMA, 120, Hiren 120, [id number], [place], [place], [place], tel:+ [phone]. , [place]. tel: tel: [phone] Yasmin Houser Encounter for Sep-2 Shelley Referring In Womens suprvsn of normal 7-201 Vanesa. Provider: Chip SHEA, , third 7 700 [place] PO Box weeks Medical Sobbing L, 1522, gestation of Center [address] [place] [address], , [facility] [place], 120, Center [id number], [place], [facility], [address], tel:+ [phone] [place], , [place], [address]. tel: tel: [phone] Yasmin H[place]er Encounter for Sep-1 Sobbing Referring In Womens suprvsn of normal 2-201 [place]. Provider: Health SHABBIR, , second 7 700 [place] PO Box [email or web address] weeks Medical Sobbing L, 1522, gestation of Center 700 [place], pregnancyType O Drive, Medical [place], blood, Rh [address] [id number], negative 120, Drive [place], [address], tel: [place], [address], [place], [address]. [place]. tel: tel: [phone] Yasmin [place]er Encounter for Aug- Shelley Referring In Womens suprvsn of normal 5-201 Vanesa. Provider: Chip SHEA, , second 7 700 [place] PO Box [id number] weeks Medical Sobbing L, 1522, gestation of Center 700 [place], Dr, [facility] [place], 120, Center [id number], [place], Drive [place], [address], tel:[phone] [place], , [place], [address]. tel: tel: [phone] Yasmin [place]er Spotting Rick-2 Sobbing Referring In Womens complicating 0-201 [place]. Provider: Chip SHEA, , second 7 700 [facility] Box trimesterMaternal Medical Sobbing L, 1522, care for excess Center 700 [place], growth, Drive, [facility], second tri, Suite Center [id number], unspEncounter for 120, Drive [place] suprvsn of normal [place], [address], tel:+ , second [place] SHARMA, [email or web address] weeks [address], [place], [address]. gestation of [place]. tel: tel: [phone] Yasmin [place]er Maternal care for Rick-2 Sobbing Referring In Womens Ultrasound excess 0-201 [place]. Provider: Chip SHEA, growth, second 7 700 [place] PO Box tri, [email or web address] weeks Medical Sobbing L, 1522, gestation of Center [address] [place], Drive, [facility] [place], [address] [id number], 120, Drive [place], [address], tel: [place], [address], [place], [address]. [place]. tel: tel: [phone] Yasmin [place]er Encounter for Acosta-2 Shelley Referring In Womens suprvsn of normal 9-201 Vanesa. Provider: Chip SHEA, , second 7 700 [place] PO Box [id number] weeks Medical Sobbing L, 1522, gestation of Center [address] [place] [address], Hiren Meade [facility] [place], 120, Center [id number], [place], [facility], [address], tel:[phone] [place], , [place], [address]. tel: tel: [phone] Yasmin [place]er Spotting Acosta-2 Sobbing Referring In Womens Ultrasound complicating [place]. Provider: Chip SHEA, , second 7 700 [place] PO Box [id number] weeks Medical Sobbing L, 1522, gestation of Center [address] [place] [address], [facility], [facility], Suite [address] [id number], 120, Drive [place], [address], tel:+ [place], [address], [place], [address]. [place]. tel: tel: [phone] Yasmin [place] Spotting Acosta-2 Sobbing Referring In Womens complicating [place]. Provider: Chip SHEA, , second 7 700 [place] PO Box [email or web address] weeks Medical Sobbing L, 1522, gestation of Center 700 [place], [facility], [facility], Suite Center [id number], 120, Drive [place], [address], tel:+ [place], [address], [place], [address]. [place]. tel: tel: [phone] Yasmin [place]er Maternal care for Acosta-1 Shelley In Womens excess 4-201 Vanesa. Chip SHEA, growth, second 7 700 PO Box tri, [email or web address] weeks Medical 1522, gestation of [facility], Hiren Meade, 120, [id number], [place], [place], tel:[phone] , [place]. tel: [phone] Yasmin [place]er Pap Smear May-1 Shelley In Womens Screening, - Vanesa. Chip SHEA, CervixEncounter 7 700 PO Box for suprvsn of Medical 1522, normal , [facility], first [email or web address] Hiren Meade, weeks gestation 120, , of [place], [place], tel:+ [phone] , [place]. tel: [phone] Yasmin [place] Sep- Shelley Referring In Womens 5-200 Vanesa. Provider: Health PA, 9 700 [place] Box Medical Filiberto, 1522, Center [address] Sumeet, [facility] [address] [place], 120, Hiren 100, [id number], [place], [place], [address]. tel: [phone] tel: , . [phone] tel: [phone] Yasmin [place] Sep-0 Nuris In Womens 4-200 Mary. Health [place], 9 700 PO [facility] 1522, [place] Dr Sumeet, [facility] [[email or web address]] [place], 120, [id number], [facility], tel: [phone] , . tel: [phone] Family History Family Member Diagnosis Age At [...] Covered green party ID Authorization(s) Aetna CI [id number] Aetna CI [id number] Aetna CI [id number] Aetna CI [id number] Aetna CI [id number] Social History Type Description Quantity Date Captured Alcohol Use Details No Caffeine Use Details Unknown Tobacco Use Status Unknown Smoking Status Never smoker Vital Signs Date / Height Weight BMI Pulse Blood Temperature Respiratory Body Head BMI Time: Rate Pressure Rate Surface Circumference percentile Area 204.50 34.0 117/ lbs 3 mm[Hg] 3:46 kg/m PM eter (2) Chief Complaint And Reason For Visit Unknown Chief Complaint And Reason For Visit Reason For Referral Reason For Referral Unknown Plan Of Care Date Type Action Status Appointment Emma Plasencia BOOKED Appointment Rupa Plasenciah - Primary C/S BOOKED Appointment Luis Angel Emma BOOKED Future Order: Radiology Order Ultrasound, OB Limited ([id number]) Ordered Future Order: Radiology Order Ultrasound OB Follow-up ([id number]) Ordered Future Order: Radiology Order Complete OB Ultrasound > 14 Ordered Weeks ([id number]) Date Type Problem Goal Intervention Status Start [...]
--- OUTSIDE RECORDS SUMMARY | 2017-01-15 05:55 | External Medical Summary | Continuity of Care Document ---
:1980 Author Organization [facility] Address [address] [place], [place] [phone] Phone Care Team Providers Name Role Phone [...] Effective Dates (start - stop) Clinical Status Encounter for suprvsn of normal - , second trimester 23 weeks gestation of - Spotting complicating , [...] Team Description For Visit Members Yasmin Houser Encounter for Shelley Referring In Womens suprvsn of normal 5-201 Vanesa. Provider: Chip SHEA, , second 7 700 [place] PO Box [email or web address] weeks Medical Sobbing L, 1522, gestation of Center [address] [place], Dr, [facility] [place], 120, Center [id number], [place], Drive [facility], [address], tel:[phone] [place], , [place], [address]. tel: tel: [phone] Yasmin [place] Spotting Aug-2 Sobbing Referring In Womens complicating 0-201 [place]. Provider: Chip SHEA, , second 7 700 [place] PO Box trimesterMaternal Medical Sobbing L, 1522, care for excess Center 700 [place], growth, Drive, [facility], second tri, Suite Center [id number], unspEncounter for 120, Drive [place] suprvsn of normal [place], [address], tel:[phone] , second [place], [place], [id number] weeks [address], [place], [address]. gestation of [place]. tel: tel: [phone] Yasmin [place] Maternal care for Aug- Sobbing Referring In Womens Ultrasound excess 0-201 [place]. Provider: Chip SHEA, growth, second 7 700 [place] PO Box tri, [email or web address] weeks Medical Sobbing L, 1522, gestation of Center [address] [place], [address], [facility], Suite [address] [id number], 120, Drive [place], [address], tel:+[phone] [place], [place], [address], [place], [address]. [place]. tel: tel: [phone] Yasmin [place] Encounter for Jul- Shelley Referring In Womens suprvsn of normal 9-201 Vanesa. Provider: Chip SHEA, , second 7 700 [place] PO Box [email or web address] weeks Medical Sobbing L, 1522, gestation of Center [address] [place] [address], Hiren Meade [place], 120, Center [id number], [place], Drive [place], [address], tel:[phone] [place], , [place], [address]. tel: tel: [phone] [facility]min [facility] [facility] Acosta-2 Sobbing Referring In Womens Ultrasound complicating 9-201 [place]. Provider: Chip SHEA, , second 7 700 [place] PO Box weeks Medical Sobbing L, 1522, gestation of Center [address] [place], [address], [facility], Suite Center [id number], 120, Drive [place], [address], tel:+ [place], [address], [place], [address]. [place]. tel: tel: [phone] [facility] Acosta-2 Sobbing Referring In Womens complicating 6-201 [place]. Provider: Chip SHEA, , second 7 700 [place] PO Box weeks Medical Sobbing L, 1522, gestation of Center [address] [place], [address], [facility], Suite [address] [id number], 120, Drive [place], [address], tel:+ [place], [address], [place], [address]. [place]. tel: tel: [phone] Yasmin [place]er 14 weeks Acosta-1 Shelley In Womens gestation of 4-201 Vanesa. Chip SHEA, pregnancyMaternal 7 700 PO Box care for excess Medical 1522, growth, [facility], second tri, unsp Hiren Meade, 120, [id number], [place], [place], tel:+ [phone] , [place]. tel: [phone] Yasmin [place] 10 weeks June- Shelley In Womens gestation of 7-201 Vanesa. Health SHABBIR, pregnancyPap 7 700 PO Box Smear Screening, Medical 1522, CervixEncounter [facility], for suprvsn of [place], normal , 120, , first trimester [place], [place], tel:+ [phone] , [place]. tel: [phone] Yasmin [place] Sep-2 Shelley Referring In Womens 5-200 Vanesa. Provider: Health [place], 9 700 Rahel [facility] Medical Filiberto, 1522, Center [address] Sumeet, [facility] [address] [place], 120, Hiren 100, [id number], [place], [place], [address]. tel: [phone] tel: , . [id number] tel: [phone] Yasmin [place] Aug-0 Nuris In Womens 4-200 Mary. [facility], 9 700 PO [facility] 1522, Center Dr Sumeet, [facility], 120, [id number], [facility], tel: [phone] , . tel: [phone] Family History Family Member Diagnosis Age At [...] Record Payers Payer name Insurance type Covered libertarian ID Authorization(s) Aetna CI [id number] Aetna CI [id number] Social History Type Description Quantity Date Captured Alcohol Use Details No Caffeine Use Details Unknown Tobacco Use Status Never smoked tobacco Smoking Status Never smoker Vital Signs Date / Height Weight BMI Pulse Blood Temperature Respiratory Body Head BMI Time: Rate Pressure Rate Surface Circumference percentile Area 203.00 33.7 lbs 8 mm[Hg] 4:16 kg/m PM eter (2) 6 4:08 kg/m PM eter (2) Chief Complaint And Reason For Visit Unknown Chief Complaint And Reason For Visit Reason For Referral Reason For Referral Unknown Plan Of Care Date Type Action Status Appointment Emma Plasencia BOOKED Future Order: Radiology Order Ultrasound, OB Limited ([id number]) Ordered Future Order: Radiology Order Complete OB Ultrasound > 14 Ordered Weeks ([id number]) Date Type Problem Goal Intervention Status Start [...]
--- OUTSIDE RECORDS SUMMARY | 2017-01-15 05:55 | External Medical Summary | Continuity of Care Document ---
:1980 Author Organization [facility] Address [address] [place], [place] [phone] Phone Care Team Providers Name Role Phone [...] - Type O blood, Rh negative - Spotting complicating , - second trimester [...] tri, unsp 14 weeks gestation of - Pap Smear Screening, [...] third trimester 29 weeks gestation of - Procedures Procedure Date OB Visit No Charge - K 9 [employer] Injection Administration Rhophylac 100 Units Antibody Screen, RBC Hemoglobin count, colorimetric Hematocrit blood count Glucose test Venpnctr fngr/heel/ear stick routne RBC antibody identification, each Joseph test, indirect Results Test Name Date and Time Measure Units Reference Range Abnormal Flag Comments Panel Description: Glucose [Mass/volume] in Serum or Plasma --1 hour post 50 g glucose PO GLUCOSE, 111 mg/dL <140 N Test performed at [facility] [employer] S[employer]EN 16:21:00 [id number] ([id number])-[id number] [place] [address]Puyobngg: LIANNA ROBLES DO,MPH Panel Description: HEMOGLOBIN + HEMATOCRIT HEMOGLOBIN 16:21:00 11.3 g/dL 11.7-15.5 L HEMATOCRIT 16:21:00 31.9 % 35.0-45.0 L Test performed at [id number] [place] [address]Fwnwhyat: LIANNA ROBLES DO,MPH Panel Description: ANTIBODY SCREEN, RBC W/REFL ID, TITER AND AG ANTIBODY SCREEN, 16:21:00 POSITIVE A Identification and titer to RBC W/REFL ID, followIdentification and titer TITER AND AG to follow Reference range No antibodies detected This assay is a screening test for the detection of red blood cell antibodies. The test is not to be used for pretransfusion screening or for the medical management of an alloimmunized . Test [place] [address]Wdoqtlya: LIANNA ROBLES DO,MPH Panel Description: ANTIBODY ID, TITER, AND TYPING, RBC ANTIBODY ANTI-D NEGATIVE A An antibody has been IDENTIFICATION: 16:21:00 detected in the patient's plasma that reacts withthe identification cells used for testing. Recommend that the antibodyscreen be repeated in 4-6 weeks if clinically inidicated. TITER SEE BELOW <1:1 16:21:00 [id number] SEE NOTE This test is intended to 16:21:00 identify IgG antibodiesimplicated in hemolytic diseases of the .It does not routinely detect IgM antibodies andthus is not suitable for screening for irregularantibodies prior to transfusion. This assay is a screening test for the detection of red blood cell antibodies. The test is not to be used for pretransfusion screening or for the medical management of an alloimmunized .Test performed at [facility] [id number] [place] [address]Mamwbksy: LIANNA ROBLES DO,MPH Advance Directives Directive Yes / No Effective Date File Name Unknown Encounters Encounter Practice Location Reason(s) Diagnoses Date Provider Care Team Description For Visit Members Yasmin [place]er Encounter for Sep-2 Shelley Referring In [facility] of normal 7-201 [place]. Provider: Health SHABBIR, , third 7 700 [facility] Box [id number] weeks Medical Sobbing L, 1522, gestation of Center [address] [place] [address], [facility], 120, Center [id number], [place], [facility], [address], tel:[phone] [place] 6[address] , . [place], [address]. tel: tel:[phone] Yasmin [place] Encounter for Sep-1 Sobbing Referring In [facility] of normal 2-201 [place]. Provider: Chip SHEA, , second 7 700 [facility] Box [id number] weeks Medical Sobbing L, 1522, gestation of Center 700 [place], pregnancyType O [facility], blood, Rh Suite Center [id number], negative 120, Drive [facility], [address], tel:[phone] [place], [address], [place], [address]. [place]. tel: tel: [phone] Yasmin [place] Encounter for Aug-1 Shelley Referring In Womens suprvsn of normal 5-201 Vanesa. Provider: Chip SHEA, , second 7 700 [place] PO Box [email or web address] weeks Medical Sobbing L, 1522, gestation of Center 700 [place], , [facility], 120, Center [id number], [place], Drive [facility], [address], tel:[phone] [place], , [place], [address]. tel: tel: [phone] Yasmin [place] Spotting Rick-2 Sobbing Referring In Womens complicating 0-201 [place]. Provider: Chip SHEA, , second 7 700 [place] PO Box trimesterMaternal Medical Sobbing L, 1522, care for excess Center 700 [place], growth, [facility], second tri, Suite Center [id number], unspEncounter for 120, Drive suprvsn of normal [place], [address], tel: , second [place] SHARMA, [id number] weeks [address], [place], [address]. gestation of [place]. tel: tel: [phone] Yasmin [place] Maternal care for Rick-2 Sobbing Referring In Womens Ultrasound excess 0-201 [place]. Provider: Chip SHEA, growth, second 7 700 [place] PO Box tri, unsp19 weeks Medical Sobbing L, 1522, gestation of Center 700 [place], [facility], Suite Center [id number], 120, Drive [place], [address], tel: [place], [address], [place], [address]. [place]. tel: tel: [phone] Yasmin [place] Encounter for Acosta-2 Shelley Referring In Womens suprvsn of normal 9-201 Vanesa. Provider: Chip SHEA, , second 7 700 [place] PO Box [email or web address] weeks Medical Sobbing L, 1522, gestation of Center 700 [place], , [facility] [place], 120, Center [id number], [place], Drive [place], [address], tel:[phone] [place], , [place], [address]. tel: tel: [phone] Yasmin [place] Spotting Acosta-2 Sobbing Referring In Womens Ultrasound complicating -201 [place]. Provider: Chip SHEA, , second 7 700 [place] PO Box [email or web address] weeks Medical Sobbing L, 1522, gestation of [address], [address], [facility], Suite Center [id number], 120, Drive [place], [address], tel: ZACHARY, [place], [address], [place], [address]. [place]. tel: tel: [phone] Yasmin [place] Acosta-2 Sobbing Referring In Womens complicating 6-201 [place]. Provider: Chip SHEA, , second 7 700 [place] PO Box [email or web address] weeks Medical Sobbing L, 1522, gestation of Center [address] [place] [address], [facility], [facility], Suite Center [id number], 120, Drive [place], [address], tel: Z[place], [place], [address], [place], [address]. [place]. tel: tel: [phone] Yasmin [place] Maternal care for Acosta-1 Shelley In Womens excess 4-201 Vanesa. Health SHABBIR, growth, second 7 700 PO Box tri, unsp14 weeks Medical 1522, gestation of [facility], Hiren Meade, 120, , [place], [place], tel:[phone] , [place]. tel: [phone] Yasmin [place] Pap Smear May-1 Shelley In Womens Screening, 7-201 Vanesa. Chip SHEA, CervixEncounter 7 700 PO Box for suprvsn of Medical 1522, normal , [facility], first [id number] Hiren [place], weeks gestation 120, , of [place], [place], tel:[phone] , [place]. tel: [phone] Yasmin [place] Aug-2 Shelley Referring In Womens 5-200 Vanesa. Provider: Chip SHEA, 9 700 [place] PO Box Medical Filiberto, 1522, Center [address], [address] [place], 120, Hiren 100, [id number], [place] [facility] [place], [address]. tel: [phone] tel: , . [id number] tel: [phone] Yasmin [place] Nuris In Womens 4-200 Mary. [facility], 9 700 PO [facility] 1522, [place] Dr Sumeet, [facility], 120, [id number], [facility], tel: [phone] , . tel: [phone] Family History Family Member Diagnosis Age At [...] Comments Rhophylac completed Source: New Immunization Record Rhophylac completed Source: New Immunization Record Payers Payer name Insurance type Covered alliance party ID Authorization(s) Aetna CI [id number] Aetna CI [id number] Aetna CI [id number] Social History Type Description Quantity Date Captured Alcohol Use Details No Caffeine Use Details Unknown Tobacco Use Status Unknown Smoking Status Never smoker Vital Signs Date / Height Weight BMI Pulse Blood Temperature Respiratory Body Head BMI Time: Rate Pressure Rate Surface Circumference percentile Area 33.7 -2016 8 3:54 kg/m PM eter (2) 198.80 33.0 115/78 2017 lbs 8 mm[Hg] 3:55 kg/m PM eter (2) Chief Complaint And Reason For Visit Unknown Chief Complaint And Reason For Visit Reason For Referral Reason For Referral Unknown Plan Of Care Date Type Action Status Appointment Emma Plasencia BOOKED Future Order: Radiology Order Ultrasound, OB Limited ([id number]) Ordered Future Order: Radiology Order Complete OB Ultrasound > 14 Ordered Weeks ([id number]) Date Type Problem Goal Intervention Status Start [...]
--- OUTSIDE RECORDS SUMMARY | 2017-01-15 05:55 | External Medical Summary | Continuity of Care Document ---
:1980 Author Organization [facility] [employer] [facility] Address [address] [place], [place] [id number] Phone Care Team Providers Name Role Phone [...] third trimester 31 weeks gestation of - Spotting complicating , [...] weeks gestation of - Procedures Procedure Date Immuniz admnin, 1 vac, sngl/combo 19 Yrs + Flu Vaccine - Quadrivalent OB Visit No Charge Results Test Name Date and Time Measure Units Reference Range Abnormal Flag Comments Unknown Advance Directives Directive Yes / No Effective Date File Name Unknown Encounters Encounter Practice Location Reason(s) Diagnoses Date Provider Care Team Description For Visit Members Yasmin Houser Maternal care for Oct-2 Shelley Referring In Womens excess 5-201 Vanesa. Provider: Chip SHEA, growth, third 7 700 Vanesa Shelley PO Box trimester, Medical K, 700 1522, unspEncounter for [facility], suprvsn of normal [place]ren [address] Dr SHARMA, , third 120, Hiren 120, [id number], [email or web address] weeks Mik [place], gestation of CT CT, tel: [phone]. , [place]. tel: tel: [phone] Yasmin Housre Encounter for Oct-1 Shelley Referring In Womens suprvsn of normal 0-201 Vanesa. Provider: Chip SHEA, , third 7 700 Vanesa Shelley PO Box [email or web address] weeks Medical K, 700 1522, gestation of [facility], Dr [facility] Dr SHARMA, 120, Hiren 120, [id number], Mik Houser, [facility] CT, tel:[phone]. , [place]. tel: tel: [phone] Yasmin Houser Encounter for Sep-2 Shelley Referring In Womens suprvsn of normal 7-201 Vanesa. Provider: Chip SHEA, , third 7 700 [place] PO Box [email or web address] weeks Medical Sobbing L, 1522, gestation of Center [address] [place], Dr [facility], 120, Center [id number], [place], [facility], [address], tel:[phone] [place], , [place], [address]. tel: tel: [phone] Yasmin Houser Encounter for Sep-1 Sobbing Referring In Womens suprvsn of normal 2-201 [place]apan. Provider: Chip SHEA, , second 7 700 [place] PO Box [email or web address] weeks Medical Sobbing L, 1522, gestation of Center [address] [place] [address], pregnancyType O [facility], blood, Rh Suite Center [id number], negative 120, Drive [facility], [address], tel: [place], [address], [place], [address]. [place]. tel: tel: [phone] Yasmin Houser Encounter for Aug-1 Shelley Referring In Womens suprvsn of normal 5-201 Vanesa. Provider: Chip SHEA, , second 7 700 [place] PO Box [id number] weeks Medical Sobbing L, 1522, gestation of Center [address] [place], Dr [facility], 120, Center [id number], [place], [facility], [address], tel: [phone] [place], , [place], [address]. tel: tel: [phone] Yasmin Houser Spotting Rick-2 Sobbing Referring In Womens complicating 0-201 [place]apan. Provider: Chip SHEA, , second 7 700 [place] PO Box trimesterMaternal Medical Sobbing L, 1522, care for excess Center 700 [place], growth, [facility], [facility], Suite Center [id number], unspEncounter for 120, Drive [place] suprvsn of normal [place], [address], tel:[phone] , second Mik SHARMA, [email or web address] weeks [address], [place], [address]. gestation of [place]. tel: tel: [phone] Yasmin Houser Maternal care for Rick-2 Sobbing Referring In Womens Ultrasound excess 0-201 [place]. Provider: Chip SHEA, growth, second 7 700 [place] PO Box tri, [email or web address] weeks Medical Sobbing L, 1522, gestation of Center [address] [place], Drive, [facility] [place], Suite Center [id number], 120, Drive [place], [address], tel:+ [place], [address], [place], [address]. [place]. tel: tel: [phone] Yasmin Houser Encounter for Acosta-2 Shelley Referring In Womens suprvsn of normal 9-201 Vanesa. Provider: Chip SHEA, , second 7 700 [facility] Box [id number] weeks Medical Sobbing L, 1522, gestation of Center [address] [place] [address], Dr, [facility] [place], 120, Center [id number], [place], Drive [place], [address], tel:+ [phone] [place] , [place], [address]. tel: tel: [phone] Yasmin Houser Spotting Acosta-2 Sobbing Referring In Womens Ultrasound complicating 9-201 [place]apan. Provider: Chip SHEA, , second 7 700 [facility] Box [email or web address] weeks Medical Sobbing L, 1522, gestation of Center [address] [place] [address], Drive, [facility] [place], Suite Center [id number], 120, Drive [place], [address], tel:+ [place] SH[place]MA, [address], [place], [address]. [place]. tel: tel: [phone] Yasmin Houser Spotting Acosta-2 Sobbing Referring In Womens complicating 6-201 [place]. Provider: Chip SHEA, , second 7 700 [facility] Box [email or web address] weeks Medical Sobbing L, 1522, gestation of Center [address] [place], [address], Medical [place], Suite Center [id number], 120, Drive [place], [address], tel:+[phone] [place] SH[place], [address], [place], [address]. [place]. tel:[phone] tel: [phone] Yasmin Houser Maternal care for Acosta-1 Shelley In Womens excess 4-201 Vanesa. Health SHABBIR, growth, second 7 700 PO Box tri, [email or web address] weeks Medical 1522, gestation of [facility], Hiren [address] CT, 120, [id number], [facility] [place], tel: [phone] , . tel: [phone] Yasmin Houser Pap Smear May-1 Shelley In Womens Screening, 7-201 Vanesa. Health SHABBIR, CervixEncounter 7 700 PO Box for suprvsn of Medical 1522, normal , [facility], first [id number] , Hiren CT, weeks gestation 120, , of [facility] [place], tel:[phone] , [place]. tel: [phone] Yasmin Houser Aug-2 Shelley Referring In Womens 5-200 Vanesa. Provider: Chip SHEA, 9 700 Ra[place] PO Box Medical Filiberto, 1522, Center [address] Sumeet, [facility] [address] [place], 120, Hiren 100, [id number], Mik [place], [facility], [address]. tel: [phone] tel:[phone] , . [id number] tel: [phone] Yasmin Houser Aug-0 Nuris In Womens 4-200 Mary. Chip SHEA, 9 700 PO Box Medical 1522, [address] Sumeet, [facility], 120, [id number], [facility] [place], tel: [phone] , . tel: [phone] Family History Family Member Diagnosis Age At [...] Record Payers Payer name Insurance type Covered republican ID Authorization(s) A[employer] CI [id number] Aetna CI [id number] Aetna CI [id number] Aetna CI [id number] Aetna CI [id number] Social History Type Description Quantity Date Captured Alcohol Use Details No Caffeine Use Details Unknown Tobacco Use Status Never smoked tobacco Smoking Status Never smoker Vital Signs Date / Height Weight BMI Pulse Blood Temperature Respiratory Body Head BMI Time: Rate Pressure Rate Surface Circumference percentile Area 205.00 34.1 107/71 2017 lbs 1 mm[Hg] 4:16 kg/m PM eter (2) 34.0 2017 6 4:08 kg/m PM eter (2) Chief Complaint And Reason For Visit Unknown Chief Complaint And Reason For Visit Reason For Referral Reason For Referral Unknown Plan Of Care Date Type Action Status Appointment Emma Plasencia BOOKED Appointment Emma Plasencia BOOKED Future Order: Radiology Order Ultrasound, OB Limited ([id number]) Ordered Future Order: Radiology Order Complete OB Ultrasound > 14 Ordered Weeks ([id number]) Date Type Problem Goal Intervention Status Start [...]
--- OUTSIDE RECORDS SUMMARY | 2017-01-15 05:55 | External Medical Summary | Continuity of Care Document ---
:1980 Author Organization [facility] [employer] [facility] Address [address] [place], [place] [id number] Phone Care Team Providers Name Role Phone [...] - stop) Clinical Status Maternal care for excess growth, - second tri, unsp 19 weeks gestation of - Spotting complicating [...] weeks gestation of - Procedures Procedure Date Ultrasound exam of preg uterus, complete Results Test Name Date and Time Measure [...] L, 1522, care for excess Center [address] [place], growth, Drive, [facility], second tri, Suite Center [id number], unspEncounter for 120, Drive [place] suprvsn of normal [place], [address], tel:[phone] , second ZACHARY, Mik, [email or web address] weeks [address], [place], [address]. gestation of [place]. tel: tel: [phone] Yasmin Houser Maternal care for Rick-2 Sobbing Referring In Womens Ultrasound excess 0-201 [place]. Provider: Chip SHEA, growth, second 7 700 [place] PO Box tri, unsp19 weeks Medical Sobbing L, 1522, gestation of Center [address] [place] [place], Drive, Medical [place], Suite Center [id number], 120, Drive [place], [address], tel: [place], [place], [address], [place], [address]. [place]. tel: tel: [phone] Yasmin Houser Encounter for Acosta-2 Shelley Referring In Womens suprvsn of normal 9-201 Vanesa. Provider: Chip SHEA, , second 7 700 [place] PO Box [email or web address] weeks Medical Sobbing L, 1522, gestation of Center [address] [place], Dr, [facility] Medical [place], 120, Center [id number], [place], [facility] [place], [address], tel:[phone] [place], , [place], [address]. tel: tel: [phone] Yasmin Houser Spotnewton Acosta-2 Sobbing Referring In Womens Ultrasound complicating 9-201 [place]. Provider: Chip SHEA, , second 7 700 [place] PO Box [email or web address] weeks Medical Sobbing L, 1522, gestation of Center [address] [place], Drive, Medical [place], Suite Center [id number], 120, Drive [place], [address], tel: [place], [place], [address], [place], [address]. [place]. tel: tel: [phone] Associates Mik Spotting Acosta-2 Sobbing Referring In Womens complicating 6-201 [place]. Provider: Health SHABBIR, , second 7 700 [place] PO Box [id number] weeks Medical Sobbing L, 1522, gestation of [address], Drive, [facility], [address] [id number], 120, Drive [place], [address], tel:+ [place], [place], [address], [place], [address]. [place]. tel: tel: [phone] Yasmin Houser Maternal care for Acosta-1 Shelley In Womens excess 4-201 Vanesa. Health SHABBIR, growth, second 7 700 PO Box tri, [email or web address] weeks Medical 1522, gestation of [facility], [place] Me[place], 120, , [place], [place], tel:[phone] , [place]. tel: [phone] Yasmin Houser Pap Smear May-1 Shelley In Womens Screening, 7-201 Vanesa. Health SHABBIR, CervixEncounter 7 700 PO Box for suprvsn of Medical 1522, normal , [facility], first [id number] [place], weeks gestation 120, , of [facility] [place], tel:[phone] , [place]. tel: [phone] Yasmin Houser Aug-2 Shelley Referring In Womens 5-200 Vanesa. Provider: Health SHABBIR, 9 700 [place] PO Box Medical Filiberto, 1522, Center [address] [place], 120, Hiren 100, , [place], [place], [address]. tel:[phone] tel: , [place]. [id number] tel: [phone] Yasmin Houser Aug-0 Nuris In Womens 4-200 Mayr. Health SHABBIR, 9 700 PO Box Medical 1522, [place] [address] Sumeet, [place], 120, [id number], [place], [place], tel:[phone] , [place]. tel:[phone] Family History Family Member Diagnosis Age At [...] Record Payers Payer name Insurance type Covered constitution party ID Authorization(s) Aetna CI [id number] Aetna CI [id number] Social History Type Description Quantity Date Captured [...] Emma Plasencia BOOKED Future Order: Radiology Order Complete OB Ultrasound > 14 Ordered Weeks ([id number]) Future Order: Radiology Order Ultrasound, OB Limited ([id number]) Ordered Date Type Problem Goal Intervention Status Start [...]
--- OUTSIDE RECORDS SUMMARY | 2017-01-15 05:55 | External Medical Summary | Continuity of Care Document ---
:1980 Author Organization [facility] [employer] [facility] Address [address] [place], [place] [phone] Phone Care Team Providers Name Role Phone [...] Status Maternal care for excess growth, - third trimester, unsp Encounter for suprvsn of normal - , third trimester 33 weeks gestation of - Spotting complicating , [...] admnin, 1 vac, sngl/combo 19 Yrs + TDAP VACCINE >7 IM OB Visit No Charge Results Test Name Date and Time Measure Units Reference Range Abnormal Flag Comments Panel Description: ANTIBODY SCREEN, RBC W/REFL ID, TITER AND AG ANTIBODY SCREEN, 16:38:00 POSITIVE A Identification and titer to RBC W/REFL ID, follow TITER AND AG Reference range No antibodies detected This assay is a screening test for the detection of red blood cell antibodies. The test is not to be used for pretransfusion screening or for the medical management of an alloimmunized . Test performed at [facility] [id number] [place] [address]Ddrpcmmm: LIANNA ROBLES DO,MPH Panel Description: ANTIBODY ID, TITER, AND TYPING, RBC ANTIBODY ANTI-D NEGATIVE A An antibody has been IDENTIFICATION: 16:38:00 detected in the patient's plasma that reacts withthe identification cells used for testing. Recommend that the antibodyscreen be repeated in 4-6 weeks if clinically inidicated. TITER SEE BELOW <1:1 16:38:00 [id number] SEE NOTE This test is intended to 16:38:00 identify IgG antibodiesimplicated in hemolytic diseases of the .It does not routinely detect IgM antibodies andthus is not suitable for screening for irregularantibodies prior to transfusion. This assay is a screening test for the detection of red blood cell antibodies. The test is not to be used for pretransfusion screening or for the medical management of an alloimmunized .REPORT COMMENT:FASTING:NOTest performed at [facility] [facility] [id number] [place] [address]Zyrpygbv: LIANNA ROBLES DO,MPH Advance Directives Directive Yes / No Effective Date File Name Unknown Encounters Encounter Practice Location Reason(s) Diagnoses Date Provider Care Team Description For Visit Members Yasmin Houser Nov-1 Shelley Referring In Womens 5-201 Vanesa. Provider: Chip SHEA, 7 700 [facility] Medical Sobbing L, 1522, Center [facility] [place], , [facility], 120, [place] [id number], [address] [facility], [address], tel:[phone] [place], [address] , . [place], [address]. tel: tel:[phone] Yasmin Houser Encounter for Nov-0 Shelley Referring In Womens suprvsn of normal 6-201 Vanesa. Provider: Chip SHEA, , third 7 700 [facility] [id number] weeks Medical Sobbing L, 1522, gestation of [address], , [facility], 120, Center [id number], [address] [facility], [address], tel:[phone] [place], [address]484[address] , . [place], [address]. tel: tel:[phone] Yasmin Houser Spotting Nov-0 Shelley Referring In Womens Ultrasound complicating 6-201 Vanesa. Provider: Chip SHEA, , third 7 700 [facility] trimesterMaternal Medical Sobbing L, 1522, care for excess Center [address] [place], [place] [address], growth, , [facility] Beto SHARMA, third trimester, 120, Center [id number], unsp35 weeks [place], [facility] gestation of [place], [address], tel:[phone] [place], , [place], [address]. tel: tel: [phone] Yasmin Houser Maternal care for Oct-2 Shelley Referring In Womens excess 5-201 Vanesa. Provider: Health SHABBIR, growth, third 7 700 Vanesa Shelley PO Box trimester, Medical K, 700 1522, unspEncounter for [facility], suprvsn of normal , [facility] Dr SHARMA, , third 120, Hiren 120, [id number], [email or web address] weeks Mik [place], gestation of [place], [place], tel:[phone]. , [place]. tel: tel: [phone] Yasmin Houser Encounter for Oct-1 Shelley Referring In Womens suprvsn of normal 0-201 Vanesa. Provider: Health SHABBIR, , third 7 700 Vanesa Shelley PO Box [email or web address] weeks Medical K, 700 1522, gestation of [facility] [place], , [facility] Dr SHARMA, 120, Hiren 120, [id number], [place], [place], [place], tel:[phone]. , [place]. tel: tel: [phone] Yasmin Houser Encounter for Sep-2 Shelley Referring In Womens suprvsn of normal 7-201 Vanesa. Provider: Health SHABBIR, , third 7 700 [place] PO Box [id number] weeks Medical Sobbing L, 1522, gestation of [address], , [facility] Beto SHARMA, 120, Center [id number], [place], [facility], [address], tel:[phone] [place], , [place], [address]. tel: tel: [phone] Yasmin Houser Encounter for Sep-1 Sobbing Referring In Womens suprvsn of normal 2-201 [place]. Provider: Health SHABBIR, , second 7 700 [place] PO Box [email or web address] weeks Medical Sobbing L, 1522, gestation of Center [address] [place], [address] O [address], [facility] [place], blood, Rh [address] [id number], negative 120, Drive [place], [address], tel:+ [place] SH[place], [address], [place], [address]. [place]. tel: tel: [phone] Yasmin Houser Encounter for Aug- Shelley Referring In Womens suprvsn of normal 5-201 Vanesa. Provider: Health PA, , second 7 700 [place] PO Box [id number] weeks Medical Sobbing L, 1522, gestation of Center [address] [place], Dr, [facility], 120, Center [id number], [place], [facility] [place], [address], tel:[phone] [place], , [place], [address]. tel: tel: [phone] Yasmin Houser Spotting Rick-2 Sobbing Referring In Womens complicating 0-201 [place]. Provider: Chip SHEA, , second 7 700 [place] PO Box trimesterMaternal Medical Sobbing L, 1522, care for excess Center 700 [place], growth, Drive, [facility], second tri, Suite Center , unspEncounter for 120, Drive [place] suprvsn of normal [place], [address], tel: , second [place] SH[place]MA, [place] [address], [place], [address]. gestation of [place]. tel: tel: [phone] Yasmin Houser Maternal care for Rick-2 Sobbing Referring In Womens Ultrasound excess 0-201 [place]. Provider: Chip SHEA, growth, second 7 700 [place] PO Box tri, unsp19 weeks Medical Sobbing L, 1522, gestation of Center [address] [place], [address], [facility], Suite [address] [id number], 120, Drive [place], [address], tel: [place] SH[place], [address], [place], [address]. [place]. tel: tel: [phone] Yasmin Houser Encounter for Acosta-2 Shelley Referring In Womens suprvsn of normal 9-201 Vanesa. Provider: Health SHABBIR, , second 7 700 [place] PO Box [id number] weeks Medical Sobbing L, 1522, gestation of Center [address] [place] [address], , [facility] [place], 120, Center [id number], [place], Drive [facility], [address], tel:[phone] [place], , [place], [address]. tel: tel: [phone] Yasmin Houser Spotting Acosta-2 Sobbing Referring In Womens Ultrasound complicating [place]apan. Provider: Health SHABBIR, , second 7 700 [place] PO Box [email or web address] weeks Medical Sobbing L, 1522, gestation of Center [address] [place] [address], [facility], [facility], Suite [address] [id number], 120, Drive [place], [address], tel:+ [place], [place], [address], [place], [address]. [place]. tel: tel: [phone] Yasmin Houser Spotting Acosta-2 Sobbing Referring In Womens complicating [place]. Provider: Health SHABBIR, , second 7 700 [place] PO Box weeks Medical Sobbing L, 1522, gestation of Center [address] [place] [address], [facility], Suite [address] [id number], 120, Drive [place], [address], tel:+ [place], [place], [address], [place], [address]. [place]. tel: tel: [phone] Yasmin Houser Maternal care for Acosta-1 Shelley In Womens excess - Vanesa. Health SHABBIR, growth, second 7 700 PO Box tri, [email or web address] weeks Medical 1522, gestation of [facility], [place], 120, , [place], [place], tel:[phone] , [place]. tel: [phone] Yasmin Houser Pap Smear May-1 Shelley In Womens Screening, Vanesa. Health SHABBIR, CervixEncounter 7 700 PO Box for suprvsn of Medical 1522, normal , [facility], first [email or web address] [place], weeks gestation 120, , of [place], [place], tel: [phone] , [place]. tel: [phone] Associates Mik Sep- Shelley Referring In Womens 5-200 Vanesa. Provider: Health PA, 9 700 [place] PO Box Medical Filiberto, 1522, Center [address] [place], [address] [place], 120, Hiren 100, [id number], Sumeet [place], [place], [address]. tel: [phone] tel: , [place]. 8[address] tel: [phone] Associates Mik Sep-0 Nuris In Womens 4-200 Mary. Health PA, 9 700 PO [facility] 1522, Center Dr Sumeet, [facility], 120, [id number], [facility], tel: [phone] , . tel: [phone] Family History Family Member Diagnosis Age At [...] type Covered republican ID Authorization(s) [employer] CI [id number] [employer] CI [id number] [employer] CI [id number] [employer] CI [id number] [employer] CI [id number] Social History Type Description Quantity Date Captured Alcohol Use Details No Caffeine Use Details Unknown Tobacco Use Status Unknown Smoking Status Never smoker Vital Signs Date / Height Weight BMI Pulse Blood Temperature Respiratory Body Head BMI Time: Rate Pressure Rate Surface Circumference percentile Area 205.80 34.2 lbs 4 mm[Hg] 4:18 kg/m PM eter (2) Chief Complaint And Reason For Visit Unknown Chief Complaint And Reason For Visit Reason For Referral Reason For Referral Unknown Plan Of Care Date Type Action Status Appointment Emma Plasencia BOOKED Appointment Luis Angel Emma BOOKED Appointment Luis Angel, Emma BOOKED Appointment Emma Plasencia BOOKED Future Order: Radiology Order Ultrasound, OB Limited ([id number]) Ordered Future Order: Radiology Order Ultrasound OB Follow-up ([id number]) Ordered Future Order: Radiology Order Complete OB Ultrasound > 14 Ordered Weeks ([id number]) Date Type Problem Goal Intervention Status Start [...]
--- OUTSIDE RECORDS SUMMARY | 2017-01-15 05:55 | External Medical Summary | Continuity of Care Document ---
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 Test Name Date and Time Measure Units Reference Range Abnormal Flag Comments Panel Description: CULTURE, GROUP B STREP WITH SUSCEPTIBILITY CULTURE, GROUP B SEE NOTE A CULTURE, GROUP B STREP WITH STREP WITH 16:42:00 SUSCEPTIBILITY MICRO NUMBER: SUSCEPTIBILITY [id number] TEST STATUS: PRELIMINARY SPECIMEN SOURCE: VAGINAL/ANORECTAL SPECIMEN QUALITY: ADEQUATE RESULT: Group B Streptococcus isolated , susceptibility test report to follow.REPORT COMMENT:FASTING:UNKNOWNTest performed at [facility] [id number] [place] [address]Dzwrvdjy: LIANNA ROBLES DO,MPH Panel Description: CULTURE, GROUP B STREP WITH SUSCEPTIBILITY CULTURE, GROUP B SEE NOTE A CULTURE, GROUP B STREP WITH STREP WITH 16:42:00 SUSCEPTIBILITY MICRO NUMBER: SUSCEPTIBILITY [id number] TEST STATUS: FINAL SPECIMEN SOURCE: VAGINAL/ANORECTAL SPECIMEN QUALITY: ADEQUATE RESULT: Group B Streptococcus isolated Results of erythromycin testing indicate that testing for inducible clindamycin resistance is not required. Group B Strep INT LINCOLN AMPICILLIN S <=0.25 CEFOTAXIME S <=0.12 CEFTRIAXONE S <=0.12 CLINDAMYCIN S <=0.25 1 LEVOFLOXACIN S 1 PENICILLIN S 0.12 VANCOMYCIN S 0.25S=Susceptible I=Intermediate R=Resistant *=Not TestedNR=Not Reported NN=See Therapy CommentsTHERAPY COMMENTS Note 1: Results of erythromycin testing indicate that testing for inducible clindamycin resistance is not required.REPORT COMMENT:FASTING:UNKNOWNTest performed at [facility] [id number] [place] [address]Mprgwmpj: LIANNA ROBLES DO,MPH Advance Directives Directive Yes / No Effective Date File Name Unknown Encounters Encounter Practice Location Reason(s) Diagnoses Date Provider Care Team Description For Visit Members Associates Mik Maternal care for Nov-2 Shelley Referring In Womens breech 1- Vanesa. Provider: Chip SHEA, presentation, 7 700 [facility] unspStreptococcus Medical Sobbing L, 1522, B carrier state [address], complicating Dr [facility], [email or web address] weeks 120, Center , gestation of [facility] [place], [address], tel:[phone] [place] [address] , [facility], [address]. tel: tel:[phone] Yasmin H[place]er Maternal care for Nov-1 Shelley Referring In Womens breech -201 Vanesa. Provider: Chip SHEA, presentation, 7 700 [facility] Box [email or web address] weeks Medical Sobbing L, 1522, gestation of [place] [address] [place], Dr [facility], 120, Center [id number], [facility], [address], tel:[phone] [place] 024983 , [facility], [address]. tel: tel: [phone] Yasmin [place] Encounter for Nov-0 Shelley Referring In Womens suprvsn of normal 6-201 Vanesa. Provider: Health SHABBIR, , third 7 700 [place] PO Box [email or web address] weeks Medical Sobbing L, 1522, gestation of [address], , [facility] [place], 120, Center [id number], [place], [facility], [address], tel:+ [phone] [place], , [place], [address]. tel: tel:[phone] Yasmin [place] Spotting Nov-0 Shelley Referring In Womens Ultrasound complicating 6-201 Vanesa. Provider: Health SHABBIR, , third 7 700 [place] PO Box trimesterMaternal Medical Sobbing L, 1522, care for excess Center [address] [place] [address], growth, , [facility], third trimester, 120, Center [id number], unsp35 weeks [place], [facility] gestation of [place], [address], tel:+ [phone] [place], , [place], [address]. tel: tel:[phone] Yasmin [place] Maternal care for Oct-2 Shelley Referring In Womens excess 5-201 Vanesa. Provider: Chip SHEA, growth, third 7 700 Vanesa Shelley PO Box trimester, Medical K, 700 1522, unspEncounter for [facility], suprvsn of normal , [facility] Dr SHARMA, , third 120, Hiren 120, [id number], [email or web address] weeks [place], gestation of [place], [place], tel:[phone]. , [place]. tel: tel: [phone] Yasmin [place] Encounter for Oct-1 Shelley Referring In Womens suprvsn of normal 0-201 Vanesa. Provider: Chip SHEA, , third 7 700 Vanesa [place] PO Box [email or web address] weeks Medical , 700 1522, gestation of [facility], , [facility] Dr SHARMA, 120, Hiren 120, [id number], Mik [place], [facility], [place], tel: [phone]. , [place]. tel: tel: [phone] Yasmin [place] Encounter for Sep-2 Shelley Referring In Womens suprvsn of normal 7-201 Vanesa. Provider: Chip SHEA, , third 7 700 [place] PO Box [email or web address] weeks Medical Sobbing L, 1522, gestation of Center 700 [place], Dr [facility], 120, Center [id number], [place], [facility], [address], tel: [phone] [place], , [place], [address]. tel: tel: [phone] Yasmin Houser Encounter for Sep-1 Sobbing Referring In Womens suprvsn of normal 2-201 [place]. Provider: Chip SHEA, , second 7 700 [place] PO Box [email or web address] weeks Medical Sobbing L, 1522, gestation of Center 700 [place], pregnancyType O [facility], blood, Rh [address] Center , negative 120, Drive [place], [address], tel: [place], [address], [place], [address]. [place]. tel: tel: [phone] Yasmin [place] Encounter for Aug-1 Shelley Referring In Womens suprvsn of normal 5-201 Vanesa. Provider: Chip SHEA, , second 7 700 [place] PO Box [id number] weeks Medical Sobbing L, 1522, gestation of Center 700 [place], Dr [facility], 120, Center , [place], [facility] [place], [address], tel: [phone] [place], , [place], [address]. tel: tel: [phone] Yasmin [place] Spotting Rick-2 Sobbing Referring In Womens complicating 0-201 [place]. Provider: Chip SHEA, , second 7 700 [place] PO Box trimesterMaternal Medical Sobbing L, 1522, care for excess Center 700 [place], growth, [facility], [facility], Suite [address] [id number], unspEncounter for 120, Drive suprvsn of normal [place], [address], tel: , second [place], weeks [address], [place], [address]. gestation of [place]. tel: tel: [phone] Yasmin [place] Maternal care for Rick-2 Sobbing Referring In Womens Ultrasound excess 0-201 [place]. Provider: Chip SHEA, growth, second 7 700 [place] PO Box tri, [email or web address] weeks Medical Sobbing L, 1522, gestation of Center [address] [place] [address], Drive, [facility] [place], Suite [address] [id number], 120, Drive [place], [address], tel: [place], [address], [place], [address]. [place]. tel: tel: [phone] Yasmin [place] Encounter for Acosta-2 Shelley Referring In Womens suprvsn of normal 9-201 Vanesa. Provider: Chip SHEA, , second 7 700 [facility] Box weeks Medical Sobbing L, 1522, gestation of Center [address] [place] [address], Dr, [facility] [place], 120, Center [id number], [place], Drive [place], [address], tel:[phone] [place], , [place], [address]. tel: tel: [phone] Yasmin [place] Spotting Acosta-2 Sobbing Referring In Womens Ultrasound complicating 9-201 [place]. Provider: Chip SHEA, , second 7 700 [facility] Box [email or web address] weeks Medical Sobbing L, 1522, gestation of Center [address] [place] [address], Drive, [facility] [place], Suite Center [id number], 120, Drive [place], [address], tel:+ [place], [address], [place], [address]. [place]. tel: tel: [phone] Yasmin [place] Spotting Acosta-2 Sobbing Referring In Womens complicating 6-201 [place]. Provider: Chip SHEA, , second 7 700 [facility] Box [email or web address] weeks Medical Sobbing L, 1522, gestation of Center [address] [place] [address], Drive, Medical [place], Suite [address] [id number], 120, Drive [place], [address], tel:+[phone] [place], [address], [place], [address]. [place]. tel: tel: [phone] Yasmin [place] Maternal care for Acosta-1 Shelley In Womens excess 4-201 Vanesa. Health SHABBIR, growth, second 7 700 PO Box tri, [email or web address] weeks Medical 1522, gestation of [facility], [place], 120, [id number], [place], [place], tel: [phone] , [place]. tel: [phone] Yasmin [place] Pap Smear May-1 Shelley In Womens Screening, 7-201 Vanesa. Health SHABBIR, CervixEncounter 7 700 PO Box for suprvsn of Medical 1522, normal , [facility], first [email or web address] [place], weeks gestation 120, , of [facility] [place], tel: [phone] , [place]. tel: [phone] Yasmin [place] Aug-2 Shelley Referring In Womens 5-200 Vanesa. Provider: Health SHABBIR, 9 700 [place] PO Box Medical Filiberto, 1522, Center [address] [place], Hiren [facility] [place], 120, Hiren 100, [id number], [place], [place], [address]. tel: [phone] tel: , [place]. [id number] tel: [phone] Yasmin [place] Aug-0 Nuris In Womens 4-200 Mary. Chip SHEA, 9 700 PO Box Medical 1522, [address] [place], [place], 120, [id number], [facility] [place], tel:[phone] , [place]. tel: [phone] Family History Family Member Diagnosis Age At [...] Covered constitution party ID Authorization(s) [employer] CI [id number] Aetna CI [id number] Aetna CI [id number] A[employer]na CI [id number] [employer] CI [id number] Social History Type Description Quantity Date Captured Alcohol Use Details No Caffeine Use Details Unknown Tobacco Use Status Unknown Smoking Status Never smoker Vital Signs Date / Height Weight BMI Pulse Blood Temperature Respiratory Body Head BMI Time: Rate Pressure Rate Surface Circumference percentile Area 206.70 34.3 lbs 9 mm[Hg] 4:14 kg/m PM eter (2) Chief Complaint And Reason For Visit Unknown Chief Complaint And Reason For Visit Reason For Referral Reason For Referral Unknown Plan Of Care Date Type Action Status Appointment Emma Plasencia BOOKED Appointment Emma Plasencia BOOKED Appointment Emma Plasencia - Primary C/S BOOKED Appointment Emma Plasencia BOOKED Future Order: Radiology Order Ultrasound, OB Limited ([id number]) Ordered Future Order: Radiology Order Ultrasound OB Follow-up ([id number]) Ordered Future Order: Radiology Order Complete OB Ultrasound > 14 Ordered Weeks ([id number]) Date Type Problem Goal Intervention Status Start [...]
--- OUTSIDE RECORDS SUMMARY | 2017-01-15 05:56 | External Medical Summary | Continuity of Care Document ---
:1980 Author Organization [facility] [employer] [facility] Address [address] [place], [place] [id number] Phone Care Team Providers Name Role Phone [...] Status Spotting complicating , - second trimester Maternal [...] L, 1522, care for excess Center [address] [place], growth, Drive, [facility], second tri, [address] [id number], unspEncounter for 120, Drive [place] suprvsn of normal [place], [address], tel:[phone] , second Mik SHARMA, [email or web address] weeks [address], [place], [address]. gestation of [place]. tel: tel: [phone] Yasmin H[place]er Maternal care for Aug-2 Sobbing Referring In Womens Ultrasound excess 0-201 [place]. Provider: Chip SHEA, growth, second 7 700 [place] PO Box tri, unsp19 weeks Medical Sobbing L, 1522, gestation of Center [address] [place], Drive, [facility], Suite [address] [id number], 120, Drive [place], [address], tel:+ [place], [address], [place], [address]. [place]. tel: tel: [phone] Yasmin [place]er Encounter for Acosta-2 Shelley Referring In Womens suprvsn of normal 9-201 Vanesa. Provider: Chip SHEA, , second 7 700 [place] PO Box [email or web address] weeks Medical Sobbing L, 1522, gestation of Center 700 [place], DrHiren [facility] [place], 120, Center [id number], [place], [facility], [address], tel: [phone] [place], , [place], [address]. tel: tel: [phone] Yasmin [place] Spotting Acosta-2 Sobbing Referring In Womens Ultrasound complicating 9-201 [place]. Provider: Chip SHEA, , second 7 700 [place] PO Box [email or web address] weeks Medical Sobbing L, 1522, gestation of Center [address] [place], Drive, [facility], Suite [address] [id number], 120, Drive [place], [address], tel:+ [place], [place], [address], [place], [address]. [place]. tel: tel: [phone] Associates Mik Spotting Acosta-2 Sobbing Referring In Womens complicating 6-201 [place]. Provider: Health SHABBIR, , second 7 700 [place] PO Box [email or web address] weeks Medical Sobbing L, 1522, gestation of [address], Drive, [facility], Suite [address] [id number], 120, Drive [place], [address], tel:+ [place], [place], [address], [place], [address]. [place]. tel: tel: [phone] Associates Mik Maternal care for Acosta-1 Shelley In Womens excess 4-201 Vanesa. Health SHABBIR, growth, second 7 700 PO Box tri, [email or web address] weeks Medical 1522, gestation of [facility], [place], 120, , [place], [place], tel:[phone] , [place]. tel: [phone] Yasmin [place] Pap Smear May-1 Shelley In Womens Screening, 7-201 Vanesa. Health SHABBIR, CervixEncounter 7 700 PO Box for suprvsn of Medical 1522, normal , [facility], first [email or web address] [place], weeks gestation 120, , of [facility] [place], tel:[phone] , [place]. tel: [phone] Yasmin [place] Aug-2 Shelley Referring In Womens 5-200 Vanesa. Provider: Health SHABBIR, 9 700 [place] PO Box Medical Filiberto, 1522, Center [address] [place], 120, Hiren 100, , [place], [place], [address]. tel:[phone] tel:[phone] , [place]. [id number] tel: [phone] Yasmin [place] Aug-0 Nuris In Womens 4-200 Mary. Health SHABBIR, 9 700 PO Box Medical 1522, Center Dr Sumeet, [place], 120, [id number], [place], [place], tel:[phone] , [place]. tel: [phone] Family History Family Member Diagnosis Age At [...] Record Payers Payer name Insurance type Covered democrat ID Authorization(s) A[employer]na CI [id number] Aetna CI [id number] Social History Type Description Quantity Date Captured Alcohol Use Details No Caffeine Use Details Unknown Tobacco Use Status Unknown Smoking Status Never smoker Vital Signs Date / Height Weight BMI Pulse Blood Temperature Respiratory Body Head BMI Time: Rate Pressure Rate Surface Circumference percentile Area 193.90 32.2 -2017 lbs 6 9:53 kg/m AM eter (2) 193.90 32.2 110/68 -2017 lbs 6 mm[Hg] 9:55 kg/m AM eter (2) Chief Complaint And Reason For Visit Unknown Chief Complaint And Reason For Visit Reason For Referral Reason For Referral Unknown Plan Of Care Date Type Action Status Appointment Emma Plasencia BOOKED Future Order: Radiology Order Ultrasound, OB Limited ([id number]) Ordered Future Order: Radiology Order Complete OB Ultrasound > 14 Ordered Weeks ([id number]) Date Type Problem Goal Intervention Status Start [...]
--- OUTSIDE RECORDS SUMMARY | 2017-01-15 05:56 | External Medical Summary | Continuity of Care Document ---
:1982 Author Organization [facility] [employer] [facility] Address [address] [place], [place] [phone] Phone Care Team Providers Name Role Phone [...] third trimester 29 weeks gestation of - Spotting complicating , [...] third trimester 31 weeks gestation of - Procedures Procedure Date OB Visit No Charge Results Test Name Date and Time Measure Units Reference Range Abnormal Flag Comments Unknown Advance Directives Directive Yes / No Effective Date File Name Unknown Encounters Encounter Practice Location Reason(s) Diagnoses Date Provider Care Team Description For Visit Members Yasmin [place]er Encounter for Nov- Shelley Referring In Womens suprvsn of normal 0-201 Vanesa. Provider: Health [place], , third 7 700 Vanesa Shelley PO Box weeks Medical , 700 1522, gestation of [facility], , [address] [place], 120, Hiren 120, [id number], [facility], [place], tel: [phone]. , [place]. tel:+ tel: [phone] Yasmin [place]er Encounter for Sep-2 Shelley Referring In Womens suprvsn of normal 7-201 Vanesa. Provider: Health SHABBIR, , third 7 700 [facility] Box weeks Medical Sobbing L, 1522, gestation of Center [address] [place] [address], , [facility] [place], 120, Center [id number], [facility], [address], tel:[phone] [place] [address] , . [place], [address]. tel: tel: [phone] Yasmin H[place]er Encounter for Sep-1 Sobbing Referring In Womens suprvsn of normal 2-201 [place]. Provider: Health SHABBIR, , second 7 700 [place] PO Box [id number] weeks Medical Sobbing L, 1522, gestation of Center [address] [place] [address], pregnancyType O [facility], [facility], blood, Rh [address] [place] [id number], negative 120, Drive [place], [address], tel:+ [place], [address], [place], [address]. [place]. tel: tel: [phone] Yasmin [place]er Encounter for Aug-1 Shelley Referring In Womens suprvsn of normal 5-201 Vanesa. Provider: Chip SHEA, , second 7 700 [place] PO Box weeks Medical Sobbing L, 1522, gestation of Center 700 [place], , [facility] [place], 120, Center [id number], [place], Drive [place], [address], tel:[phone] [place], , [place], [address]. tel: tel: [phone] Yasmin [place] Spotting Rick-2 Sobbing Referring In Womens complicating 0-201 [place]. Provider: Chip SHEA, , second 7 700 [place] PO Box trimesterMaternal Medical Sobbing L, 1522, care for excess Center 700 [place], growth, [facility], second tri, Suite Center [id number], unspEncounter for 120, Drive [place] suprvsn of normal [place], [address], tel:+ , second ZACHARYMik, [email or web address] weeks [address], [place], [address]. gestation of [place]. tel: tel: [phone] Yasmin [place] Maternal care for Rick-2 Sobbing Referring In Womens Ultrasound excess 0-201 [place]. Provider: Chip SHEA, growth, second 7 700 [place] PO Box tri, unsp19 weeks Medical Sobbing L, 1522, gestation of Center [address] [place], Drive, [facility] [place], Suite Center [id number], 120, Drive [place], [address], tel:2 [place], [address], [place], [address]. [place]. tel: tel: [phone] Yasmin [place] Encounter for Acosta-2 Shelley Referring In Womens suprvsn of normal 9-201 Vanesa. Provider: Health SHABBIR, , second 7 700 [place] PO Box [email or web address] weeks Medical Sobbing L, 1522, gestation of Center [address] [place], Dr, [facility] [place], 120, Center [id number], [place], Drive [place], [address], tel:[phone] [place], , [place], [address]. tel: tel: [phone] Yasmin [place] Spotting Acosta-2 Sobbing Referring In Womens Ultrasound complicating 9-201 [place]. Provider: Health SHABBIR, , second 7 700 [place] PO Box [email or web address] weeks Medical Sobbing L, 1522, gestation of [address], Drive, [facility], Suite Center [id number], 120, Drive [place], [address], tel:+ [place], [place], [address], [place], [address]. [place]. tel: tel: [phone] Yasmin [place] Spotting Acosta-2 Sobbing Referring In Womens complicating 6-201 [place]. Provider: Health SHABBIR, , second 7 700 [place] PO Box [id number] weeks Medical Sobbing L, 1522, gestation of [address], [facility], Suite [address] [id number], 120, Drive [place], [address], tel:+ ZACHARY, [place], [address], [place], [address]. [place]. tel: tel: [phone] Yasmin [place] Maternal care for Acosta-1 Shelley In Womens excess 4-201 Vanesa. Health SHABBIR, growth, second 7 700 PO Box tri, [email or web address] weeks Medical 1522, gestation of [facility], [place], 120, , [facility] [place], tel: [phone] , [place]. tel: [phone] Yasmin [place] Pap Smear May-1 Shelley In Womens Screening, 7-201 Vanesa. Health SHABBIR, CervixEncounter 7 700 PO Box for suprvsn of Medical 1522, normal , [facility], first [email or web address] [place], weeks gestation 120, , of [facility], tel:[phone] , [place]. tel: [phone] Yasmin [place] Aug-2 Shelley Referring In Womens 5-200 Vanesa. Provider: Health [place], 9 700 [facility] Fil[facility], 1522, Center [address] [place], [facility] [address] [place], 120, Hiren 100, [id number], [place], [facility] [place], [address]. tel: [phone] tel: , [place]. [id number] tel: [phone] Yasmin [place] Nuris In Womens 4-200 Mary. [facility], 9 700 [facility] 1522, Center Dr S[place], [place], 120, [id number], [facility] [place], tel: [phone] , [place]. tel: [phone] Family History Family Member Diagnosis Age At [...] of Osteoporosis Immunizations Vaccine Date Status Comments Influenza, injectable, completed Source: New Immunization Record quadrivalent, preservative free, 3 yrs or older Rhophylac completed Source: New Immunization Record Rhophylac completed Source: New Immunization Record Payers Payer name Insurance type Covered republican ID Authorization(s) Aetna CI [id number] Aetna CI [id number] Aetna CI [id number] A[employer]na CI [id number] Social History Type Description Quantity Date Captured Alcohol Use Details No Caffeine Use Details Unknown Tobacco Use Status Unknown Smoking Status Never smoker Vital Signs Date / Height Weight BMI Pulse Blood Temperature Respiratory Body Head BMI Time: Rate Pressure Rate Surface Circumference percentile Area 204.70 34.0 lbs 6 mm[Hg] 3:32 kg/m PM eter (2) Chief Complaint And Reason For Visit Unknown Chief Complaint And Reason For Visit Reason For Referral Reason For Referral Unknown Plan Of Care Date Type Action Status Appointment Emma Plasencia BOOKED Future Order: Radiology Order Ultrasound, OB Limited ([id number]) Ordered Future Order: Radiology Order Complete OB Ultrasound > 14 Ordered Weeks ([id number]) Date Type Problem Goal Intervention Status Start [...]
--- OUTSIDE RECORDS SUMMARY | 2017-01-15 05:56 | External Medical Summary | Continuity of Care Document ---
:1980 Author Organization [facility] Allergies Active Description Code Type Severity Reaction Onset Reported/ Identified Relationship Clinical to Patient Status Yes Penicillins 476 3 N/A Unknown Medications Medication Packaging Start Date Stop Date Route Dosage Sig Not Specified 01/11/2013 06/23/2016 NUVARING insert 1 vaginal ring by VAGINAL route every month leave in place for 24 days, then remove for 4 days Syringe 08/03/2016 RHOPHYLAC Capsule 12/22/2016 COLACE take 1 capsule by oral route every day at bedtime as needed as needed Problems Date Dx Attending Type Code Diagnosis Diagnosed By Coded 08/03/2016 Tapan Blake O26.852 Spotting L complicating , second trimester 08/03/2016 Tapan Blake Z3A.16 16 weeks gestation L of 08/03/2016 W V22.0 SUPERVIS NORMAL 1ST PREG 08/06/2016 Tapan Blake O26.852 Spotting L complicating , second trimester 08/06/2016 Tapan Blake Z3A.16 16 weeks gestation L of 08/27/2016 Tapan Blake O36.62x0 Maternal care for L excess growth, second tri, unsp 08/27/2016 Tapan Blake Z3A.19 19 weeks gestation L of 12/14/2016 Vanesa Shelley O26.853 Spotting complicating , third trimester 12/14/2016 Vanesa Shelley O36.63x0 Maternal care for excess growth, third trimester, unsp 12/14/2016 Vanesa Shelley Z3A.35 35 weeks gestation of Procedures Code Description Performed By Performed On OB 10/02/2008 44499 Visit No Charge 10/02/2008 38008 Cult, bactr, iraj colonycnt, urine 10/02/2008 43279 Infct antign, chlamydia trac, ampl 10/02/2008 01141 Neisseria Gonorrhea, Amplified DNA 10/02/2008 27278 Specimen handling/transport OB 08/03/2016 79207 Visit No Charge 08/06/2016 97562 Ultrasnd exam, preg uterus, limited 08/27/2016 00520 Ultrasnd exam of preg uterus, compl 12/02/2016 95129 Immuniz admnin, 1 vac, sngl/combo TDAP 12/02/2016 34032 VACCINE >7 IM 12/14/2016 52470 Ultrasnd preg uterus, flwup/repeat Results Encounters ACCT No. Visit Discharge Status Pt. Type Provider Facility Loc./Unit Complaint Date/Time [id number] 03/29/2013 03/29/2013 CLS Outpatient 20:33:00 23:59:59 [id number] 01/05/2017 01/05/2017 CLS Outpatient Shelley, 16:15:00 23:59:59 Vanesa Wilhelm [id number] 01/04/2017 01/04/2017 CLS Outpatient Shelley, 08:31:00 23:59:59 Vanesa Wilhelm [id number] 12/29/2016 12/29/2016 CLS Outpatient Shelley, 16:00:00 23:59:59 Vanesa K [id number] 12/23/2016 12/23/2016 CLS Outpatient Shelley, 15:35:00 23:59:59 Vanesa K [id number] 12/16/2016 12/16/2016 CLS Outpatient Shelley, 10:35:00 23:59:59 Vanesa Wilhelm [id number] 12/14/2016 12/14/2016 CLS Outpatient Shelley, 16:00:00 23:59:59 Vanesa Wilhelm [id number] 12/14/2016 12/14/2016 CLS Outpatient Shelley, 15:45:00 23:59:59 Vanesa Melonie [id number] 12/02/2016 12/02/2016 CLS Outpatient Shelley, 16:00:00 23:59:59 Vanesa Melonie [id number] 11/17/2016 11/17/2016 CLS Outpatient Shelley, 16:15:00 23:59:59 Vanesa Melonie [id number] 11/04/2016 11/04/2016 CLS Outpatient Shelley, 15:20:00 23:59:59 Vanesa Wilhelm [id number] 10/20/2016 10/20/2016 CLS Outpatient [place], 15:50:00 23:59:59 Tapan Looney [id number] 09/22/2016 09/22/2016 CLS Outpatient Shelley, 16:00:00 23:59:59 Vanesa Wilhelm [id number] 08/27/2016 08/27/2016 CLS Outpatient [place], 09:30:00 23:59:59 Tapan Aure [id number] 08/27/2016 08/27/2016 CLS Outpatient [place], 09:15:00 23:59:59 Tapan Aure [id number] 08/06/2016 08/06/2016 CLS Outpatient Shelley, 10:30:00 23:59:59 Vanesa Wilhelm [id number] 08/06/2016 08/06/2016 CLS Outpatient [place], 10:15:00 23:59:59 Tapan Aure [id number] 08/03/2016 08/03/2016 CLS Outpatient [place], 09:45:00 23:59:59 Tapan Aure [id number] 07/22/2016 07/22/2016 CLS Outpatient Shelley, 14:50:00 23:59:59 Vanesa Wilhelm [id number] 06/24/2016 06/24/2016 CLS Outpatient Shelley, 15:45:00 23:59:59 Vanesa Wilhelm [id number] 06/03/2016 06/03/2016 CLS Outpatient Shelley, 08:10:00 23:59:59 Vanesa Wilhelm [id number] 01/13/2017 Document 15:45:00 Registration [id number] 06/24/2016 Document 15:47:09 Registration [id number] 10/02/2008 Document 15:10:00 Registration
--- OUTSIDE RECORDS SUMMARY | 2017-01-15 05:56 | External Medical Summary | Continuity of Care Document ---
:1980 Author Organization [email or web address] Address [address] [place], [place] [id number] Phone Care Team Providers Name Role Phone [...] for excess growth, - second tri, unsp Procedures Procedure Date OB Visit No Charge [...] L, 1522, care for excess Center [address], growth, [facility], [facility], second tri, [address] [id number], unspEncounter for 120, [address] [place] suprvsn of normal [place], [address], tel:[phone] , second Mik SHARMA, [email or web address] weeks [address], [place], [address]. gestation of [place]. tel: tel: [phone] Yasmin [place] Maternal care for Rick-2 [place] Referring In Womens Ultrasound excess 0-201 Tapan. Provider: Chip SHEA, growth, second 7 700 [place] PO Box tri, [email or web address] weeks Medical [place] L, 1522, gestation of Center [address], [address], [facility], [address] [id number], [address], Drive [place], [address], tel:+ [place], [address], [place], [address]. [place]. tel: tel: [phone] Yasmin [place] Encounter for Acosta-2 Shelley Referring In Womens suprvsn of normal 9-201 Vanesa. Provider: Chip SHEA, , second 7 700 [place] PO Box [email or web address] weeks Medical [place] L, 1522, gestation of Center [address], [facility] [place], 120, Center [id number], [place], [facility], [address], tel: [phone] [place], , [place], [address]. tel: tel: [phone] Yasmin [place] Spotting Acosta-2 [place] Referring In Womens Ultrasound complicating 9-201 Tapan. Provider: Chip SHEA, , second 7 700 [place] PO Box [email or web address] weeks Medical [place] L, 1522, gestation of Center [address], [address], [facility], [address] [id number], [address], Drive [place], [address], tel: [place], [place], [address], [place], [address]. [place]. tel: tel: [phone] Associates Mik Spotting Acosta-2 [place] Referring In Womens complicating 6-201 Tapan. Provider: Health SHABBIR, , second 7 700 [place] PO Box weeks Medical [place] L, 1522, gestation of Center [address] [place] [address], Drive, [facility], [address] [id number], [address], Drive [place], [address], tel:+ [place], [place], [address], [place], [address]. [place]. tel: tel: [phone] Yasmin [place] 14 weeks Acosta-1 Shelley In Womens gestation of 4-201 Vanesa. Health SHABBIR, pregnancyMaternal 7 700 PO Box care for excess Medical 1522, growth, [facility], second tri, unsp [place], 120, , [place], [place], tel:[phone] , [place]. tel: [phone] Yasmin [place] 10 weeks June-1 Shelley In Womens gestation of 7-201 Vanesa. Health SHABBIR, pregnancyPap 7 700 PO Box Smear Screening, Medical 1522, CervixEncounter [facility], for suprvsn of [place], normal , 120, , [facility] [place], tel:[phone] , [place]. tel: [phone] Yasmin [place] Sep-2 Shelley Referring In Womens 5-200 Vanesa. Provider: Health SHABBIR, 9 700 [place] PO Box Medical Filiberto, 1522, Center [address] [place], 120, Hi[place] 100, , [place], [place], [address]. tel:[phone] tel:[phone] , [place]. [id number] tel: [phone] Yasmin [place] Aug-0 Nuris In Womens 4-200 Mary. Health SHABBIR, 9 700 PO Box Medical 1522, [address] [place], [place], 120, [id number], [place], tel:[phone] [address] , [place]. tel:[phone] Family History Family Member Diagnosis Age At [...] type Covered libertarian ID Authorization(s) [employer] CI [id number] Aetna CI [id number] Social History Type Description Quantity Date Captured Alcohol Use Details No Caffeine Use Details Unknown Tobacco Use Status Unknown Smoking Status Never smoker Vital Signs Date / Height Weight BMI Pulse Blood Temperature Respiratory Body Head BMI Time: Rate Pressure Rate Surface Circumference percentile Area 193.00 32.1 105/65 2017 lbs 1 mm[Hg] 10:45 kg/m AM eter (2) 32.1 -2017 1 10:38 kg/m AM eter (2) Chief Complaint And Reason For Visit Unknown Chief Complaint And Reason For Visit Reason For Referral Reason For Referral Unknown Plan Of Care Date Type Action Status Appointment Emma Plasencia BOOKED Future Order: Radiology Order Ultrasound, OB Limited ([id number]) Ordered Future Order: Radiology Order Complete OB Ultrasound > 14 Ordered Weeks ([id number]) Date Type Problem Goal Intervention Status Start [...]
--- OUTSIDE RECORDS SUMMARY | 2017-01-15 05:56 | External Medical Summary | Continuity of Care Document ---
:1980 Author Organization [facility] Address [address] [place], [place] [phone] Phone Care Team Providers Name Role Phone [...] - stop) Clinical Status Spotting complicating , third - trimester Maternal care for excess growth, - third trimester, unsp 35 weeks gestation of - Spotting complicating [...] gestation of - Procedures Procedure Date Ultrasnd preg uterus, flwup/repeat Results Test Name Date and Time Measure Units Reference Range Abnormal Flag Comments Unknown Advance Directives Directive Yes / No Effective Date File Name Unknown Encounters Encounter Practice Location Reason(s) Diagnoses Date Provider Care Team Description For Visit Members Associates [facility] Maternal care for Shelley Referring In Womens breech 1-201 Vanesa. Provider: Chip SHEA, presentation, 7 700 [facility] Lou Looney, 1522, B carrier [place] [address] [place], complicating Dr, [facility] Medical [place], [email or web address] weeks 120, Center [id number], gestation of Donnie [place], [address], tel:[phone] [place], [id number] , [place]. [place], [address]. tel: tel:[phone] Yasmin [place] Maternal care for Nov-1 Shelley Referring In Womens breech 5-201 Vanesa. Provider: Chip SHEA, presentation, 7 700 [place] PO Box [email or web address] weeks Medical [place] L, 1522, gestation of Center [address] [place], , [facility], 120, Center [id number], [place], [facility], [address], tel:[phone] [place], , [place], [address]. tel: tel:[phone] Yasmin [place] Encounter for Nov-0 Shelley Referring In Womens suprvsn of normal 6-201 Vanesa. Provider: Chip SHEA, , third 7 700 [place] PO Box [email or web address] weeks Medical [place] L, 1522, gestation of Center [address] [place], , [facility], 120, Center , [place], [facility], [address], tel:[phone] [place], , [place], [address]. tel: tel:[phone] Yasmin [place] Spotting Nov-0 Shelley Referring In Womens Ultrasound complicating 6-201 Vanesa. Provider: Chip SHEA, , third 7 700 [place] PO Box trimesterMaternal Medical [place] L, 1522, care for excess Center [address] [place], growth, , [facility], third trimester, 120, Center [id number], [id number] weeks [place], [facility] gestation of [place], [address], tel:[phone] [place], , [place], [address]. tel: tel:[phone] Yasmin [place] Maternal care for Oct-2 Shelley Referring In Womens excess 5-201 Vanesa. Provider: Chip SHEA, growth, third 7 700 Vanesa Shelley PO Box trimester, Medical [place], 700 1522, unspEncounter for Center Medical [place], suprvsn of normal , [facility] [place], , third 120, [place] 120, [id number], [email or web address] weeks [place], [place] gestation of [place], [place], tel: [phone]. , [place]. tel: tel: [phone] Yasmin [place] Encounter for Oct-1 Shelley Referring In Womens suprvsn of normal 0-201 Vanesa. Provider: Health SHABBIR, , third 7 700 Vanesa Shelley PO Box [email or web address] weeks Medical K, 700 1522, gestation of [facility] [place], Dr, [facility] Dr [place], 120, [place] 120, [id number], [place], [place], [place], tel: [phone]. , [place]. tel: tel: [phone] Yasmin [place] Encounter for Sep-2 Shelley Referring In Womens suprvsn of normal 7-201 Vanesa. Provider: Chip SHEA, , third 7 700 [place] PO Box [email or web address] weeks Medical [place] L, 1522, gestation of Center [address] [place] [address], , [facility] [place], 120, Center , [place], [facility], [address], tel: [phone] [place], , [place], [address]. tel: tel: [phone] Yasmin [place] Encounter for Sep-1 [place] Referring In Womens suprvsn of normal 2-201 Tapan. Provider: Chip SHEA, , second 7 700 [place] PO Box [email or web address] weeks Medical [place] L, 1522, gestation of Center [address] [place] [address], [address], [facility] [place], blood, Rh [address] Center , negative 120, Drive [place], [address], tel: [place], [address], [place], [address]. [place]. tel: tel: [phone] Yasmin [place] Encounter for Aug-1 Shelley Referring In Womens suprvsn of normal 5-201 Vanesa. Provider: Health SHABBIR, , second 7 700 [place] PO Box [email or web address] weeks Medical [place] L, 1522, gestation of Center [address] [place], [place] [address]ta, , [facility] [place], 120, Center [id number], [place], Drive [place], [address], tel:[phone] [place], , [place], [address]. tel: tel: [phone] Yasmin [place] Spotting Rick-2 Sob[place] Referring In Womens complicating 0-201 Tapan. Provider: Chip SHEA, , second 7 700 [facility] Box trimesterMaternal Medical [place] L, 1522, care for excess Center [address] [place], growth, Drive, [facility], second tri, Suite [address] [id number], unspEncounter for 120, Drive [place] suprvsn of normal [place], [address], tel: , second [place], [place], [email or web address] weeks [address], [place], [address]. gestation of [place]. tel: tel: [phone] Yasmin [place] Maternal care for Rick-2 Sob[place] Referring In Womens Ultrasound excess 0-201 Tapan. Provider: Chip SHEA, growth, second 7 700 [facility] Box tri, [email or web address] weeks Medical [place] L, 1522, gestation of Center [address] [place], Drive, [facility] [place], [address] [id number], 120, Drive [place], [address], tel: [place], [place], [address], [place], [address]. [place]. tel: tel: [phone] Yasmin [place] Encounter for Acosta-2 Shelley Referring In Womens suprvsn of normal 9-201 Vanesa. Provider: Health SHABBIR, , second 7 700 [facility] Box [id number] weeks Medical [place] L, 1522, gestation of Center [address], Dr, [facility] [place], 120, Center [id number], [place], [facility] [place], [address], tel: [phone] [place], , [place], [address]. tel: tel: [phone] Yasmin [place] Spotting Acosta-2 [place] Referring In Womens Ultrasound complicating 9-201 Tapan. Provider: Health SHABBIR, , second 7 700 [place] PO Box [email or web address] weeks Medical [place] L, 1522, gestation of Center [address] [place], [address], Medical [place], [address] [id number], 120, Drive [place], [address], tel:+ [place], [place], [address], [place], [address]. [place]. tel: tel: [phone] Associates Mik Spotting Acosta-2 [place] Referring In Womens complicating 6-201 Tapan. Provider: Chip SHEA, , second 7 700 [place] PO Box [email or web address] weeks Medical [place] L, 1522, gestation of Center [address] [place] [address], Drive, [facility], Suite Center , 120, Drive [place], [address], tel:+ [place], [address], [place], [address]. [place]. tel: tel: [phone] Associates Mik Maternal care for Acosta-1 Shelley In Womens excess 4-201 Vanesa. Health SHABBIR, growth, second 7 700 PO Box tri, [email or web address] weeks Medical 1522, gestation of [facility], [place], 120, , [place], [place], tel:[phone] , [place]. tel: [phone] Yasmin [place] Pap Smear May-1 Shelley In Womens Screening, 7-201 Vanesa. Health SHABBIR, CervixEncounter 7 700 PO Box for suprvsn of Medical 1522, normal , [facility], first [email or web address] [place], weeks gestation 120, , of [place], [place], tel:[phone] , [place]. tel: [phone] Yasmin [place] Aug-2 Shelley Referring In Womens 5-200 Vanesa. Provider: Health SHABBIR, 9 700 [place] PO Box Medical Filiberto, 1522, Center [address] [place], [address] [place], 120, [place] 100, [id number], [place], [place], [address]. tel:[phone] tel: , [place]. [id number] tel: [phone] Yasmin [place] Aug-0 Nuris In Womens 4-200 Mary. Chip SHEA, 9 700 PO Box Medical 15[address], [address] [place], [facility], 120, [id number], [facility] [place], tel:[phone] , . tel: [phone] Family History Family Member Diagnosis Age At [...] Covered green party ID Authorization(s) [employer] CI [id number] Aetna CI [id number] Aetna CI [id number] Aetna CI [id number] Aetna CI [id number] Social History Type Description Quantity Date Captured [...] Emma Plasencia BOOKED Future Order: Radiology Order Ultrasound OB Follow-up ([id number]) Ordered Future Order: Radiology Order Ultrasound, OB Limited ([id number]) Ordered Future Order: Radiology Order Complete OB Ultrasound > 14 Ordered Weeks ([id number]) Date Type Problem Goal Intervention Status Start [...]
[2017-01-15] MEDS ORDERED: NOZIN NASAL SWAB NAS SCH (06:00)
[2017-01-15] MEDS ORDERED: CLINDAMYCIN PB 900 MG/50 ML BAG IV ONE (06:08)
[2017-01-15] MEDS ORDERED: FAMOTIDINE PB 20 MG/50 ML BAG IV ONE (06:15)
[2017-01-15] MEDS: LR 1,000 ML IV SCH ×2 (06:18→07:31)
[2017-01-15 06:29] VITALS: BMI 36.0
[2017-01-15] MEDS ORDERED: CITRIC ACID/SODIUM CITRATE 30ml PO ONE (06:50)
[2017-01-15] MEDS ORDERED: OXYTOCIN BOLUS BAG 30 UNIT/500 ML ML IV SCH (07:00)
[2017-01-15] MEDS ORDERED: METHYLERGONOVINE 0.2 MG/ML INJECTION IM PRN (07:16)
[2017-01-15] MEDS ORDERED: CARBOPROST 250 MCG/ML INJECTION IM PRN (07:16)
[2017-01-15] MEDS ORDERED: MAG-AL + SIM ORAL LIQUID 30ml PO PRN (07:16)
[2017-01-15] MEDS ORDERED: ACETAMINOPHEN 500 MG TABLET PO PRN (07:16)
[2017-01-15] MEDS ORDERED: CALCIUM CARBONATE Chewable 500mg TABLET PO PRN (07:16)
[2017-01-15] MEDS ORDERED: D5LR 1,000 ML IV PRN (07:21)
[2017-01-15] MEDS ORDERED: OXYTOCIN DRIP 30 UNIT/500 ML ML IV PRN (07:21)
[2017-01-15] MEDS ORDERED: CLINDAMYCIN PB 900 MG/50 ML BAG IV SCH (07:30)
[2017-01-15] MEDS ORDERED: MORPHINE SULFATE PF 5mg/10ml INJ (Duramorph) EPI ONE (09:53)
[2017-01-15] MEDS ORDERED: FentaNYL 100 MCG/2 ML INJECTION IVP ONE (09:53)
[2017-01-15] MEDS ORDERED: NALBUPHINE 10 MG/ML INJECTION IVP PRN (12:35)
[2017-01-15] MEDS ORDERED: LIDOCAINE 2.5%/PRILOCAINE 2.5% CREAM 5gm TOP ONE (15:02)
[2017-01-15] MEDS ORDERED: OXYTOCIN DRIP 30 UNIT/500 ML ML IV SCH (15:10)
[2017-01-15] MEDS ORDERED: HYDROCODONE/APAP 5mg/325mg TABLET PO PRN (15:10)
[2017-01-15] MEDS ORDERED: HYDROCORTISONE 2.5% CREAM 30gm RECTALLY PRN (15:10)
[2017-01-15] MEDS ORDERED: RHOPHYLAC - PHARMACY CONSULT MC ONE (15:10)
[2017-01-15] MEDS ORDERED: DiphenhydrAMINE 25 MG CAPSULE PO PRN (15:10)
--- NOTE | 2017-01-15 15:50 | Labor and Delivery Note ---
DATE OF DELIVERY 01/15/2017 STEVIE Carter is a 36-year-old 4, para 2 at 39 weeks 4 days gestational age who was originally scheduled for a this morning due to breech. However, on arrival baby had spontaneously verted and was vertex on sono. She was started on Pitocin. Her membranes were ruptured, artificially returning clear fluids. She progressed nicely throughout labor and only had to push for a short period of time. She had a spontaneous vaginal delivery of a viable female infant, Apgars 7/9, weight 3815 g, "Bia." She had a small second- degree laceration that was repaired after it was injected with local. The placenta took more than 15 minutes to deliver. It finally delivered spontaneously and appeared to be intact. The uterus clamped down well. Mom and baby tolerated the delivery well. MTDD
[2017-01-15] MEDS: IBUPROFEN 800 MG TABLET PO PRN (16:38)
[2017-01-16] MEDS: IBUPROFEN 800 MG TABLET PO PRN ×2 (03:51→18:46)
[2017-01-16] MEDS ORDERED: RHO(D) IMMUNE GLOBULIN 300 MCG/2 ML INJECTION IVP ONE (10:49)
--- NOTE | 2017-01-16 10:55 | Pharmacy Consult ---
Pharmacy Consult-Rhophylac - Laboratory Information 01/15/17 01/15/17 01/16/17 06:11 15:10 05:58 Hgb /Adult Ratio 0.0000 Blood Type O Negative RhIG Candidate? Is a candidate - Consult Information Rh FACTOR CONSULT: Mother Blood Type = O negative Child Blood Type = A positive Hgb / Adult Ratio = 0.0000 Will give Rho D Immunoglobulin 300mcg IV x 1 dose. Thank you, Rahel Rucker [facility]
[2017-01-16] MEDS: DOCUSATE CALCIUM 240 MG CAPSULE PO SCH (11:31)
--- NOTE | 2017-01-16 12:10 | Progress Note ---
OB PP Progress Note Free Text - Date Date: 01/16/17 - Progress Note Progress Note: vss af no c/o watching baby for gbs pos q&a-krb
[2017-01-17] MEDS: DOCUSATE CALCIUM 240 MG CAPSULE PO SCH (09:55)
--- NOTE | 2017-01-17 10:58 | Progress Note ---
OB PP Progress Note Free Text - Date Date: 01/17/17 - Progress Note Progress Note: vss af no c/o dc to boarding today (baby Bili) f/u 5-6wks dc instructions reviewed q&a
[2017-01-17 17:08] VITALS: RESP 18; TEMP 98.1
[2017-01-17 20:51] VITALS: BP 124/76; PULSE 77; O2SAT 99
== END 2017-01-17 20:30 | disposition home or self-care (01) | DRG 775 ==
LOC: MC 05:47
PROVIDERS: ADMIT Obstetrics & Gynecology; ATTEND Obstetrics & Gynecology